=== PATIENT | female | born 1950 | race Caucasian/White ===

== ENCOUNTER 2018-08-06 18:34 | Inpatient (IN) ==
[2018-08-06] MEDS ORDERED: Acetaminophen 325 MG Tablet PO ONE (19:24)
[2018-08-06] MEDS ORDERED: Sod Chloride 0.9% Inj 1,000 ML IV.SIG ONE ×2 (19:24→20:35)
--- NOTE | 2018-08-06 19:32 | ED ---
HPI General Chief complaint: Abdominal Pain Stated complaint: abd pain/nausea x3days Time Seen by Provider: 08/06/18 19:17 Source: patient, family, RN notes reviewed and old records reviewed Mode of arrival: ambulatory History of Present Illness HPI narrative: 67yF presenting with fever. The patient states that for the past 3 days she's had tactile fevers/ chills, cough, and wheezing. She has been using her home nebulizer with minimal relief of symptoms. She reports that today she began to have nausea and multiple episodes of vomiting as well. Denies chest pain, abdominal pain (contrary to triage note, specifically denies abdominal pain), diarrhea, or dysuria. No known recent sick contacts. History of sepsis secondary to epidural abscess (grew MSSA), had been on doxycycline prophylaxis until recently, when she was taken off "to give her body a rest". Related Data Home Medications Medication Instructions Recorded Confirmed aspirin 81 mg PO DAILY 08/06/18 08/06/18 bupropion HCl 150 mg PO BID 08/06/18 08/06/18 escitalopram oxalate 20 mg PO DAILY 08/06/18 08/06/18 hydrocodone-acetaminophen 1 tab PO QID PRN 08/06/18 08/06/18 lisinopril 5 mg PO DAILY 08/06/18 08/06/18 metformin 1,000 mg PO BID 08/06/18 08/06/18 metoprolol tartrate 25 mg PO BID 08/06/18 08/06/18 omeprazole 20 mg PO DAILY 08/06/18 08/06/18 rosuvastatin 20 mg PO HS 08/06/18 08/06/18 Allergies Allergy/AdvReac Type Severity Reaction Status Date / Time penicillin G Allergy Severe Rash Verified 08/06/18 19:05 tetanus toxoid, adsorbed Allergy Severe Rash Verified 08/06/18 19:05 gabapentin AdvReac Severe Anaphylaxis Verified 08/06/18 20:54 Review of Systems ROS: all other systems reviewed are negative Constitutional Reports chills and Reports fever(s) Eyes Denies blurry vision ENT Denies nasal congestion Cardiovascular Denies chest pain Gastrointestinal Denies abdominal pain, Reports nausea and Reports vomiting Genitourinary Denies dysuria Musculoskeletal Denies back pain Neurologic Denies confusion Psychiatric Denies confusion PMFSH History History Provided By: Patient Medical History Medical History Depressed bipolar disorder (Acute) Diabetes (Acute) FHx: total knee replacement (Acute) GERD (gastroesophageal reflux disease) (Acute) HTN (hypertension) (Acute) Hx of myocardial infarction (Acute) Hx of sepsis (Acute) Hypercholesteremia (Acute) Migraines (Acute) Surgical History Surgical History Hx of section (Acute) Hx of tonsillectomy (Acute) Social History Social History Substance History: No History of Abuse Second Hand Smoke Exposure: No Smoking Status: Former smoker How Often Do You Have a Drink Containing Alcohol: Never [facility] within the Last 8 Weeks: No Recent Out of Country Travel within the Last 8 Weeks: No Exam Const General: no acute distress HENMT Face and sinus: normal facial exam Eyes General: appearance normal, both eyes and all related structures Resp Effort & Inspection: normal respiratory effort Auscultation: no rhonchi and no wheezes Cardio Rate: tachycardic Rhythm: regular rhythm GI Other: Obese, soft, non-tender in all quadrants, no guarding or rebound Skin General: no rashes or lesions noted Neuro General: alert and awake Psych Affect: normal affect Course Reevaluation(s) Reevaluation #1: The patient has no obvious source of infection on her initial workup so I added a CT abd/ pelvis to her orders. The patient initially refused the scan, and I have spoken with her at length at least 3 times and explained that I am concerned that we could be missing an intra-abdominal source of her infection. The patient reports that she has a headache and is requesting multiple doses of medications for this. I also added a head CT, but was told by the management tech that the patient refused abdominal CT once she was in the scanner. I again spoke with the patient and explained that I cannot treat her infection appropriately if I can't complete a workup. She says "if my head feels better and I'm not nauseous then I'll go for the scan". Time: 21:59 Initial Documented Vital Signs Temperature 102.7 F H 08/06/18 19:05 Pulse Rate 118 H 08/06/18 19:05 Respiratory Rate 18 08/06/18 19:05 Blood Pressure 164/78 H 08/06/18 19:05 Pulse Oximetry 93 L 08/06/18 19:05 Last Documented Vital Signs Temperature 99.5 F 08/06/18 21:09 Pulse Rate 75 08/07/18 00:37 Respiratory Rate 15 08/07/18 00:37 Blood Pressure 124/65 08/07/18 00:37 Pulse Oximetry 98 08/07/18 00:37 Medical Decision Making MDM Narrative Medical decision making narrative: Assessment: 67yF presenting with fever, tachycardia, cough, vomiting Plan: Sepsis workup CXR, CT abd/pelvis Will add CTH as patient complains of headache/ sinus congestion IV fluids Antibiotics Addendum: Please see "re-evaluation" section regarding patient refusing CT abd/ pelvis; this is still pending. The patient was found to have sepsis and acute kidney injury. I do not have a clear source yet as her UA, CXR, and flu swab were all negative. She was found to have sinusitis on CTH. I covered her with broad-spectrum antibiotics (patient has a PCN allergy so I added azactam/ flagyl / vanco). Case discussed with Dr. Arias of [facility], patient requires admission and further workup. Medical Screen Exam Complete: Yes Emergency Medical Condition: Yes Differential Diagnosis Differential Diagnosis: Differential diagnosis includes, but is not limited to: SIRS/ sepsis, influenza, pneumonia, viral syndrome, UTI Medical Records Medical records reviewed: Yes I reviewed the patient's medical records. Lab Data Lab results reviewed: Yes I reviewed the patient's lab results. Result diagrams: 08/06/18 19:54 08/06/18 19:54 Lab Results 08/06/18 08/06/18 08/06/18 Range/Units 19:54 19:54 19:54 CBC w Diff Slide review pending WBC 17.6 H (4.0-11.0) th/mm3 RBC 4.76 (4.00-5.30) mil/mm3 Hgb 13.2 (11.6-15.3) gm/dL Hct 40.3 (35.0-46.0) % MCV 84.6 (80.0-100.0) fL MCH 27.7 (27.0-34.0) pg MCHC 32.7 (32.0-36.0) % RDW 14.1 (11.6-17.2) % Plt Count 279 (150-450) th/mm3 MPV 9.4 (7.0-11.0) fL Neut % (Auto) 82.9 H (16.0-70.0) % Lymph % (Auto) 6.9 L (9.0-44.0) % [place] % (Auto) 5.2 (0.0-8.0) % Eos % (Auto) 2.7 (0.0-4.0) % Baso % (Auto) 2.3 H (0.0-2.0) % Neut # (Auto) 14.6 H (1.8-7.7) th/mm3 Lymph # (Auto) 1.2 (1.0-4.8) th/mm3 Bacon # (Auto) 0.9 (0.0-0.9) th/mm3 Eos # (Auto) 0.5 H (0.0-0.4) th/mm3 Baso # (Auto) 0.4 H (0.0-0.2) th/mm3 WBC Differential Manual diff final Seg Neuts % (Manual) 71 H (16-70) % Band Neuts % (Manual) 5 (0-6) % Lymphocytes % (Manual) 11 (9-44) % Monocytes % (Manual) 7 (0-8) % Eosinophils % (Manual) 5 H (0-4) % Basophils % (Manual) 1 (0-2) % Abs Neuts (Manual) 13.4 H (1.8-7.7) th/mm3 Differential Comment . Platelet Estimate Normal (Normal) Platelet Morphology Normal (Normal) Sodium 136 (136-145) meq/L Potassium 3.8 (3.5-5.1) meq/L Chloride 101 (98-107) meq/L Carbon Dioxide 26.8 (21.0-32.0) meq/L Anion Gap 8 (5-15) meq/L BUN 21 H (7-18) mg/dL Creatinine 1.40 H (0.50-1.00) mg/dL Estimated GFR 38 L (>89) mL/min Random Glucose 122 H (74-106) mg/dL Lactic Acid 1.4 (0.4-2.0) mmol/L Calcium 9.3 (8.5-10.1) mg/dL Phosphorus 1.5 L (2.5-4.9) mg/dL Magnesium 1.7 (1.5-2.5) mg/dL Total Bilirubin 0.4 (0.2-1.0) mg/dL AST 31 (15-37) U/L ALT 37 (10-53) U/L Alkaline Phosphatase 98 (45-117) U/L Total Protein 8.8 H (6.4-8.2) g/dL Albumin 4.0 (3.4-5.0) g/dL Lipase 93 (73-393) U/L Urine Color (Yellw/Straw) Urine Clarity (Clear) Urine pH (5.0-8.5) Ur Specific [place] (1.002-1.035) Urine Protein (Neg-Trace) mg/dL Urine Glucose (UA) (Negative) mg/dL Urine Ketones (Negative) mg/dL Urine Occult Blood (Negative) Urine Nitrate (Negative) Urine Bilirubin (Negative) Urine Urobilinogen (Less than 2) mg/dL Ur Leukocyte Esterase (Negative) Urine RBC (0-3) /hpf Urine WBC (0-5) /hpf Ur Squamous Epith Cells (0-5) /hpf Urine Bacteria (None) /hpf Micro UA Comment Ur Microscopic Review Urine Culture Comments 08/06/18 Range/Units 20:17 CBC w Diff WBC (4.0-11.0) th/mm3 RBC (4.00-5.30) mil/mm3 Hgb (11.6-15.3) gm/dL Hct (35.0-46.0) % MCV (80.0-100.0) fL MCH (27.0-34.0) pg MCHC (32.0-36.0) % RDW (11.6-17.2) % Plt Count (150-450) th/mm3 MPV (7.0-11.0) fL Neut % (Auto) (16.0-70.0) % Lymph % (Auto) (9.0-44.0) % Bacon % (Auto) (0.0-8.0) % Eos % (Auto) (0.0-4.0) % Baso % (Auto) (0.0-2.0) % Neut # (Auto) (1.8-7.7) th/mm3 Lymph # (Auto) (1.0-4.8) th/mm3 [place] # (Auto) (0.0-0.9) th/mm3 Eos # (Auto) (0.0-0.4) th/mm3 Baso # (Auto) (0.0-0.2) th/mm3 WBC Differential Seg Neuts % (Manual) (16-70) % Band Neuts % (Manual) (0-6) % Lymphocytes % (Manual) (9-44) % Monocytes % (Manual) (0-8) % Eosinophils % (Manual) (0-4) % Basophils % (Manual) (0-2) % Abs Neuts (Manual) (1.8-7.7) th/mm3 Differential Comment Platelet Estimate (Normal) Platelet Morphology (Normal) Sodium (136-145) meq/L Potassium (3.5-5.1) meq/L Chloride (98-107) meq/L Carbon Dioxide (21.0-32.0) meq/L Anion Gap (5-15) meq/L BUN (7-18) mg/dL Creatinine (0.50-1.00) mg/dL Estimated GFR (>89) mL/min Random Glucose (74-106) mg/dL Lactic Acid (0.4-2.0) mmol/L Calcium (8.5-10.1) mg/dL Phosphorus (2.5-4.9) mg/dL Magnesium (1.5-2.5) mg/dL Total Bilirubin (0.2-1.0) mg/dL AST (15-37) U/L ALT (10-53) U/L Alkaline Phosphatase (45-117) U/L Total Protein (6.4-8.2) g/dL Albumin (3.4-5.0) g/dL Lipase (73-393) U/L Urine Color Yellow (Yellw/Straw) Urine Clarity Clear (Clear) Urine pH 8.0 (5.0-8.5) Ur Specific [place] 1.020 (1.002-1.035) Urine Protein Negative (Neg-Trace) mg/dL Urine Glucose (UA) Negative (Negative) mg/dL Urine Ketones Negative (Negative) mg/dL Urine Occult Blood Negative (Negative) Urine Nitrate Negative (Negative) Urine Bilirubin Negative (Negative) Urine Urobilinogen 0.2 (Less than 2) mg/dL Ur Leukocyte Esterase Negative (Negative) Urine RBC 0-3 (0-3) /hpf Urine WBC 0-5 (0-5) /hpf Ur Squamous Epith Cells 0-5 (0-5) /hpf Urine Bacteria Few H (None) /hpf Micro UA Comment Culture not ind Ur Microscopic Review Microscopic reviewed Urine Culture Comments Culture not ind Imaging Data Radiologist's impression: Chest X-Ray 08/06/18 19:24 CONCLUSION: 1. No acute cardiopulmonary disease. Head CT 08/06/18 21:32 CONCLUSION: 1. Chronic ethmoid and maxillary sinus disease with suspected acute left maxillary sinusitis. 2. No acute intracranial abnormality. . ECG Data Attestation: I personally reviewed and interpreted this ECG as follows: Interpretation: Rate: 109 BPM Rhythm: Sinus [place]: Normal Intervals: 1st degree AV block, QTc 408 ms Q waves: III, aVF T waves: Inverted in III ST segments: No elevations or depressions Impression: Sinus tachycardia with inferior Q waves, no changes as compared to EKG from 08/08/2014. Discharge Plan Discharge Order Discharge Orders: ED Use Only Admit Order (Routine); Ordered 08/07/18 Ordered By: Kim Dominguez Physicians Team ED Provider: Kim Dominguez Primary Care Provider: Saritha Ramos Rxs /Orders / Referrals /Forms Prescriptions: No Action bupropion HCl 150 mg Tablet Sustained-Release 12 Hr 150 mg PO BID RF: 0 hydrocodone-acetaminophen 10-325 mg Tablet 1 tab PO QID PRN (Reason: Acute Pain) RF: 0 aspirin 81 mg Tablet,Delayed Release (Dr/Ec) 81 mg PO DAILY RF: 0 metformin 1,000 mg Tablet 1,000 mg PO BID RF: 0 omeprazole 20 mg Capsule,Delayed Release(Dr/Ec) 20 mg PO DAILY RF: 0 lisinopril 5 mg Tablet 5 mg PO DAILY RF: 0 escitalopram oxalate 20 mg Tablet 20 mg PO DAILY RF: 0 rosuvastatin 20 mg Tablet 20 mg PO HS RF: 0 metoprolol tartrate 25 mg Tablet 25 mg PO BID RF: 0 Discharge Interventions Interventions: Vital Signs Last Done: 08/07/18 00:37 Status ED Status: Admitted Patient
[2018-08-06 20:15] LABS: Baso # (Auto) 0.4 th/mm3 (0.0-0.2); Baso % (Auto) 2.3 % (0.0-2.0); Eos # (Auto) 0.5 th/mm3 (0.0-0.4); Eos % (Auto) 2.7 % (0.0-4.0); Hematocrit 40.3 % (35.0-46.0); Hemoglobin 13.2 gm/dL (11.6-15.3); Lymph # (Auto) 1.2 th/mm3 (1.0-4.8); Lymph % (Auto) 6.9 % (9.0-44.0); Mean Corpuscular HGB Conc 32.7 % (32.0-36.0); Mean Corpuscular Hemoglobin 27.7 pg (27.0-34.0); Mean Corpuscular Volume 84.6 fL (80.0-100.0); Mean Platelet Volume 9.4 fL (7.0-11.0); Mono # (Auto) 0.9 th/mm3 (0.0-0.9); Mono % (Auto) 5.2 % (0.0-8.0); Neut # (Auto) 14.6 th/mm3 (1.8-7.7); Neut % (Auto) 82.9 % (16.0-70.0); Platelet Count 279 th/mm3 (150-450); Red Blood Count 4.76 mil/mm3 (4.00-5.30); Red Cell Distribution Width 14.1 % (11.6-17.2); White Blood Count 17.6 th/mm3 (4.0-11.0)
[2018-08-06] MEDS ORDERED: Butalbital/APAP/Caff 50/325/40 MG Tablet PO ONE (20:15)
[2018-08-06 20:21] LABS: Chloride 101 meq/L (98-107); Potassium 3.8 meq/L (3.5-5.1); Sodium 136 meq/L (136-145)
[2018-08-06 20:21] LABS: Bilirubin,Urine Negative (Negative); Clarity,Urine Clear (Clear); Color,Urine Yellow (Yellw/Straw); Glucose,Urine (UA) Negative (Negative); Leukocyte Esterase,Urine Negative (Negative); Nitrite,Urine Negative (Negative); Urobilinogen,Urine 0.2 mg/dL (Less than 2)
[2018-08-06 20:24] LABS: Anion Gap 8 meq/L (5-15); Blood Urea Nitrogen 21 mg/dL (7-18); Calcium 9.3 mg/dL (8.5-10.1); Carbon Dioxide 26.8 meq/L (21.0-32.0); Glucose,Random 122 mg/dL (74-106); Lipase 93 U/L (73-393); Magnesium 1.7 mg/dL (1.5-2.5)
[2018-08-06 20:27] LABS: Alanine Aminotransferase 37 U/L (10-53); Aspartate Aminotransferase 31 U/L (15-37); Glomerular Filtration Rate 38 mL/min (>89); Phosphorus 1.5 mg/dL (2.5-4.9)
[2018-08-06 20:29] LABS: Total Protein 8.8 g/dL (6.4-8.2)
[2018-08-06] MEDS ORDERED: Potassium Phosphate Inj 30 MMOL in Sodium Chlor 0.9% Inj 250 ML IV.SIG ONE (20:29)
[2018-08-06 20:30] LABS: Alkaline Phosphatase 98 U/L (45-117)
--- NOTE | 2018-08-06 20:35 | XR ---
EXAM DATE: 08/06/2018 8:32 PM EST AGE/SEX: 67 years / Female INDICATIONS: Fever, shortness of breath. CLINICAL DATA: This is the patient's initial encounter. Patient reports that signs and symptoms have been present for 1 day and indicates a pain score of 10/10. MEDICAL/SURGICAL HISTORY: None. Fusion, thoracic. COMPARISON: [facility] [place], CHEST SINGLE AP, 07/04/2014. . FINDINGS: No significant new focal pleural or parenchymal opacities. Cardiomediastinal contours are within norm al limits given portable technique. Redemonstration of thoracic spine. Fixation hardware. CONCLUSION: 1. No acute cardiopulmonary disease. Electronically signed by: Ryan Saldivar MD Board Certified Radiologist 08/06/2018 8:34 PM EST
[2018-08-06 20:36] LABS: Bacteria,Urine Few /hpf; RBC,Urine 0-3 /hpf (0-3); Squamous Epithelial Cell,Urine 0-5 /hpf (0-5); WBC,Urine 0-5 /hpf (0-5)
[2018-08-06 21:07] LABS: Eosinophils 5 % (0-4); Lymphocytes 11 % (9-44); Monocytes 7 % (0-8)
[2018-08-06 21:08] LABS: Platelet Estimate Normal (Normal); Platelet Morphology Normal (Normal)
[2018-08-06] MEDS ORDERED: Morphine Inj 4 MG/ML Vial IV.PUSH ONE (21:32)
--- NOTE | 2018-08-06 21:55 | CT ---
EXAM DATE: 08/06/2018 9:47 PM EST AGE/SEX: 67 years / Female INDICATIONS: Fever, headache. CLINICAL DATA: This is the patient's initial encounter. Patient reports that signs and symptoms have been present for 1 day and indicates a pain score of 5/10. MEDICAL/SURGICAL HISTORY: Cardiovascular disease. Hypertension. Diabetes. None. RADIATION DOSE: 58.65 CTDI (mGy) COMPARISON: No prior exams available for comparison. TECHNIQUE: CT of the head without contrast. Using automated exposure control and adjustment of the mA and/or kV according to patient size, radiation dose was kept as low as reasonably achievable to ob tain optimal diagnostic quality images. DICOM format image data is available electronically for revi ew and comparison. FINDINGS: Cerebrum: The ventricles are normal for age. No evidence of midline shift, mass lesion, hemorrhage or acute infarction. No extraaxial fluid collections are seen. Posterior Fossa: The cerebellum and brainstem are intact. The 4th ventricle is midline. The cerebe llopontine angle is unremarkable. Extracranial: The visualized portion of the orbits is intact. Mucosal thickening is seen involving t he ethmoid air cells bilaterally and maxillary sinuses bilaterally. Small air-fluid level involving t he left maxillary sinus. Mastoid air cells are clear. Skull: The calvaria is intact. No evidence of skull fracture. CONCLUSION: 1. Chronic ethmoid and maxillary sinus disease with suspected acute left maxillary sinusitis. 2. No acute intracranial abnormality. . Electronically signed by: Adryan Hairston MD Board Certified Radiologist 08/06/2018 9:53 PM EST
[2018-08-06] MEDS ORDERED: Vancomycin Inj 1,000 MG in Sodium Chlor 0.9% Inj 250 ML IV.SIG ONE (22:27)
[2018-08-06] MEDS ORDERED: Aztreonam Inj 2 GM in Sodium Chloride 0.9% Inj 100 ML IV.SIG ONE (22:29)
[2018-08-07] MEDS ORDERED: Vancomycin Consult Pharmacy OTHER PRN ×2 (00:44→01:11)
[2018-08-07] MEDS ORDERED: Bisacodyl 10 MG Supp RECTAL PRN (00:45)
[2018-08-07] MEDS ORDERED: Aztreonam Inj 2 GM in Sodium Chloride 0.9% Inj 100 ML IV.SIG SCH (01:00)
[2018-08-07] MEDS ORDERED: Vancomycin Inj 650 MG in Sodium Chlor 0.9% Inj 250 ML IV.SIG SCH (02:00)
[2018-08-07] MEDS: Acetaminophen 325 MG Tablet PO PRN (03:20)
[2018-08-07] MEDS: Heparin - SQ 10,000 UNITS/ML Vial SQ SCH ×3 (03:20→23:48)
[2018-08-07] MEDS: Sod Chloride 0.9% Inj 1,000 ML IV.CONT SCH ×3 (05:18→20:57)
[2018-08-07] MEDS ORDERED: Influenza (Quadrivalent) Vaccine 0.5 ML Syringe IM ONE (09:00)
[2018-08-07] MEDS: buPROPion 150 MG 12 HR Tablet PO SCH ×2 (09:09→20:56)
[2018-08-07] MEDS: Metoprolol Tartrate 25 MG Tablet PO SCH ×2 (09:09→20:56)
[2018-08-07] MEDS: Aztreonam Inj 2 GM in Sodium Chloride 0.9% Inj 100 ML IV.SIG SCH ×3 (09:11→23:47)
[2018-08-07] MEDS: Senna/Docusate Sodium 8.6/50 MG Tablet PO SCH ×2 (09:13→20:56)
--- NOTE | 2018-08-07 09:50 | P.HPIM ---
History of Present Illness Primary Care Physician: Saritha Ramos History of Present Illness: This is a 67-year-old female patient with a known medical history of hypertension, hyperlipidemia and diabetes who presented to the ED with complaints of fever, chills, cough and wheezing for 3 days. She does admit to subjective fevers at home although she states she has not taken her temperature at home as well as nausea, denies any vomiting or diarrhea. Does admit to a cough with green productive phlegm, denies any recent antibiotic use. Denies any sick contacts. Patient denies any history of COPD although she states that she has been wheezing. She states she quit smoking after many years about 4 years ago. She does use a nebulizer at home, states she has been using this more due to her shortness of breath and coughing without resolution of her symptoms. Patient does follow with mat tester, Dr. Galarza. Who manages her CAD. She does have a history of TN and stent placement. It also should be noted that patient has a history of an epidural abscess with MSSA, in 2013 she underwent back surgery for this with placement of rods, at that time was placed on doxycycline and continued for prophylaxis of infection. Recently she has been taken off this doxycycline and she no longer takes this. Denies any abnormal back pain, no point tenderness on exam, she does have chronic back pain and takes [place] for this. Inpatient Certification Inpatient Certification: I certify that the inpatient services were ordered in accordance with Medicare regulations governing the order. This includes certification that hospital inpatient services are reasonable and necessary and in the case of services not specified as inpatient-only under 42 CFR 419.22(n), that they are appropriately provided as inpatient services in accordance to with the 2-midnight benchmark under 43 CFR 412.3(e) Estimated Total Length of Stay (Days): 3 Plans for Post Hospital Care: Not yet determined Review of Systems Review of Systems: all other systems reviewed are negative [facility] Medical History Medical History Depressed bipolar disorder (Acute) Diabetes (Acute) FHx: total knee replacement (Acute) GERD (gastroesophageal reflux disease) (Acute) HTN (hypertension) (Acute) Hx of myocardial infarction (Acute) Hx of sepsis (Acute) Hypercholesteremia (Acute) Migraines (Acute) Surgical History Surgical History Hx of section (Acute) Hx of tonsillectomy (Acute) Social History Social History Substance History: No History of Abuse Second Hand Smoke Exposure: No Smoking Status: Never smoker How Often Do You Have a Drink Containing Alcohol: Never Recent Travel in [place] within the Last 8 Weeks: No Recent Out of Country Travel within the Last 8 Weeks: No Immunization History Tetanus Immunization: Unable to Assess Hx Influenza Vaccine This Season: No Medications and Allergies Allergies Allergy/AdvReac Type Severity Reaction Status Date / Time penicillin G Allergy Severe Rash Verified 08/06/18 19:05 tetanus toxoid, adsorbed Allergy Severe Rash Verified 08/06/18 19:05 gabapentin AdvReac Severe Anaphylaxis Verified 08/06/18 20:54 Home Medications Medication Instructions Recorded Confirmed Type aspirin 81 mg PO DAILY 08/06/18 08/06/18 History bupropion HCl 150 mg PO BID 08/06/18 08/06/18 History escitalopram oxalate 20 mg PO DAILY 08/06/18 08/06/18 History hydrocodone-acetaminophen 1 tab PO QID PRN 08/06/18 08/06/18 History lisinopril 5 mg PO DAILY 08/06/18 08/06/18 History metformin 1,000 mg PO BID 08/06/18 08/06/18 History metoprolol tartrate 25 mg PO BID 08/06/18 08/06/18 History omeprazole 20 mg PO DAILY 08/06/18 08/06/18 History rosuvastatin 20 mg PO HS 08/06/18 08/06/18 History Active Medications: Active Medications Acetaminophen (Tylenol) 650 mg PO Q4H PRN PRN Reason: Temp > 100.4 Last Admin: 08/07/18 03:20 Dose: 650 mg Hydrocodone Bitart/Acetaminophen ([place] 10/325) 1 tab PO QID PRN PRN Reason: Acute Pain Last Admin: 08/07/18 09:08 Dose: 1 tab Al Hydroxide/Mg Hydroxide (Milk Of Magnesia Liq) 30 ml PO Q12H PRN PRN Reason: Mild Constipation Aspirin (Ecotrin) 81 mg PO DAILY [facility] Last Admin: 08/07/18 09:08 Dose: 81 mg Atorvastatin Calcium (Lipitor) 40 mg PO HS [facility] Bisacodyl (Dulcolax Supp) 10 mg RECTAL DAILY PRN PRN Reason: SEVERE CONSITIPATION Bupropion HCl (Wellbutrin Sr) 150 mg PO BID [facility] Last Admin: 08/07/18 09:09 Dose: 150 mg Escitalopram Oxalate (Lexapro) 20 mg PO DAILY [facility] Last Admin: 08/07/18 09:09 Dose: 20 mg Heparin Sodium (Porcine) (Heparin Inj) 5,000 units SQ Q12H [facility] Last Admin: 08/07/18 03:20 Dose: 5,000 units Sodium Chloride (Ns Inj) 1,000 mls @ 100 mls/hr IV.CONT .Q10H [facility] Last Admin: 08/07/18 05:18 Dose: 100 mls/hr Aztreonam 2 gm/ Sodium (Chloride) 100 mls @ 200 mls/hr IV.SIG Q8H [facility] Last Admin: 08/07/18 09:11 Dose: 200 mls/hr Metronidazole/Sodium Chloride (Flagyl 500 Mg Inj) 100 mls @ 100 mls/hr IV.SIG Q8H [facility] Last Infusion: 08/07/18 04:20 Dose: Infused Vancomycin HCl 1,650 mg/ (Sodium Chloride) 516.5 mls @ 250 mls/hr IV.SIG DAILY@ 0500 [facility] Lactulose (Lactulose Liq) 30 ml PO DAILY PRN PRN Reason: SEVERE CONSITIPATION Lisinopril (Prinivil) 5 mg PO DAILY [facility] Metoprolol Tartrate (Lopressor) 25 mg PO BID [facility] Last Admin: 08/07/18 09:09 Dose: 25 mg Miscellaneous Information ([facility] Ordered Lab Info) 0 each OTHER DAILY@ 0445 ONE Stop: 08/11/18 04:46 Ondansetron HCl (Zofran Inj) 4 mg IV.PUSH Q6H PRN PRN Reason: NAUSEA OR VOMITING Last Admin: 08/07/18 09:11 Dose: 4 mg Pantoprazole Sodium (Protonix) 20 mg PO DAILY [facility] Pharmacy Profile Note (Vancomycin Consult Pharmacy) 1 each OTHER UNSCH PRN PRN Reason: Pharmacy to dose Senna/Docusate Sodium (Clarita-Colace) 1 tab PO BID [facility] Last Admin: 08/07/18 09:13 Dose: 1 tab Sennosides (Senokot) 17.2 mg PO Q12H PRN PRN Reason: Moderate Constipation Sodium Chloride (Ns Flush) 2 ml IV.FLUSH BID [facility] Last Admin: 08/07/18 09:13 Dose: 2 ml Sodium Chloride (Ns Flush) 2 ml IV.FLUSH PRN PRN PRN Reason: FLUSH AFTER USING IV ACCESS Physical Exam Vital signs: Vital Signs 08/06/18 19:05 08/06/18 20:44 08/06/18 21:04 Temperature 102.7 F H Pulse Rate 118 H 95 H Respiratory Rate 18 15 Blood Pressure 164/78 H 140/76 Pulse Oximetry 93 L 93 L 08/06/18 21:09 08/07/18 00:37 08/07/18 01:50 Temperature 99.5 F Pulse Rate 75 73 Respiratory Rate 15 15 Blood Pressure 124/65 145/75 H Pulse Oximetry 98 97 08/07/18 04:00 08/07/18 08:00 Temperature 99.5 F 97.3 F L Pulse Rate 77 78 Respiratory Rate 20 20 Blood Pressure 107/52 L 126/87 Pulse Oximetry 95 95 Intake & Output 08/06/18 08/07/18 08/07/18 18:59 06:59 18:59 Intake Total 2966.5 / 2966.5 Balance 2966.5 / 2966.5 Weight 118.7 kg Intake: IV 2966.5 / 2966.5 Azactam Inj 2 GM In NS Inj 100 100 / 100 ML @ 200 mls/hr IV.SIG ONCE ONE Rx#:[id number] Potassium Phosphate Inj 30 MMOL 260 / 260 In NS Inj 250 ML @ 43.333 mls/ hr IV.SIG ONCE ONE Rx#: [id number] NS Inj 1,000 ML @ Wide Open IV. 1999 SIG BOLUS ONE Rx#:[id number] Vancomycin Inj 1,000 MG In NS 250 / 250 Inj 250 ML @ 250 mls/hr IV.SIG ONCE ONE Rx#:[id number] Vancomycin Inj 650 MG In NS Inj 256.5 / 256.5 250 ML @ 250 mls/hr IV.SIG DAILY@0200 [facility] Rx#:[id number] Flagyl 500 MG Inj 100 ML @ 100 100 / 100 mls/hr IV.SIG Q8H [facility] Rx#: [id number] Other: # Voids 3 Weight On Admission 118.5 kg Narrative: GENERAL: Well-developed, well-nourished patient in NAD. SKIN: Warm and dry. No rash. HEAD: Normocephalic. Atraumatic. EYES: Pupils equal and round. No scleral icterus. No injection or drainage. ENT: No nasal bleeding or discharge. Mucous membranes pink and moist. NECK: Supple. Trachea midline. CARDIOVASCULAR: Regular rate and rhythm. S1, S2 noted. No murmur appreciated. RESPIRATORY: No accessory muscle use. Clear to auscultation. Breath sounds equal bilaterally. GASTROINTESTINAL: Abdomen soft, non-tender, nondistended. Normoactive bowel sounds x4. MUSCULOSKELETAL: No obvious deformities. Extremities without clubbing, cyanosis , or edema. NEUROLOGICAL: Awake and alert. No obvious cranial nerve deficits. Motor grossly within normal limits. 5/5 muscle strength in bilateral upper and lower extremities. Normal speech. PSYCHIATRIC: Appropriate mood and affect; insight and judgment normal. Results Labs CBC & Chem 7: 08/06/18 19:54 08/06/18 19:54 Imaging Impressions Chest X-Ray 08/06/18 19:24 CONCLUSION: 1. No acute cardiopulmonary disease. Head CT 08/06/18 21:32 CONCLUSION: 1. Chronic ethmoid and maxillary sinus disease with suspected acute left maxillary sinusitis. 2. No acute intracranial abnormality. . Caprini VTE Risk Assessment Caprini VTE Risk Assessment: Moderate/High Risk (score >= 2) Caprini Risk Assessment Model: Point Value = 1 Point Value = 2 Point Value = 3 Point Value = 5 Age 41-60 Minor surgery BMI > 25 kg/m2 Swollen legs Varicose veins or History of unexplained or recurrent spontaneous Oral contraceptives or hormone replacement Sepsis (< 1 month) Serious lung disease, including pneumonia (< 1 month) Abnormal pulmonary function Acute myocardial infarction Congestive heart failure (< 1 month) History of inflammatory bowel disease Medical patient at bed rest Age 61-74 Arthroscopic surgery Major open surgery (> 45 min) Laparoscopic surgery (> 45 min) Malignancy Confined to bed (> 72 hours) Immobilizing plaster cast Central venous access Age >= 75 History of VTE Family history of VTE Factor V Leiden Prothrombin [id number] Lupus anticoagulant Anticardiolipin antibodies Elevated serum homocysteine Heparin-induced thrombocytopenia Other congenital or acquired thrombophilia Stroke (< 1 month) Elective arthroplasty Hip, pelvis, or leg fracture Acute spinal cord injury (< 1 month) Prophylaxis Regimen: Total Risk Factor Score Risk Level Prophylaxis Regimen 0-1 Low Early ambulation 2 Moderate Order ONE of the following: *Sequential Compression Device (SCD) *Heparin 5000 units SQ BID 3-4 Higher Order ONE of the following medications: *Heparin 5000 units SQ TID *Enoxaparin/Lovenox 40 mg SQ daily (WT < 150 kg, CrCl > 30 mL/min) *Enoxaparin/Lovenox 30 mg SQ daily (WT < 150 kg, CrCl > 10-29 mL/min) *Enoxaparin/Lovenox 30 mg SQ BID (WT < 150 kg, CrCl > 30 mL/min) AND/OR *Sequential Compression Device (SCD) 5 or more Highest Order ONE of the following medications: *Heparin 5000 units SQ TID (Preferred with Epidurals) *Enoxaparin/Lovenox 40 mg SQ daily (WT < 150 kg, CrCl > 30 mL/min) *Enoxaparin/Lovenox 30 mg SQ daily (WT < 150 kg, CrCl > 10-29 mL/min) *Enoxaparin/Lovenox 30 mg SQ BID (WT < 150 kg, CrCl > 30 mL/min) AND *Sequential Compression Device (SCD) Assessment and Plan Plan This is a 67-year-old female patient with a known medical history of hypertension, hyperlipidemia and diabetes who presented to the ED with complaints of abdominal pain, fever, chills, cough and wheezing for 3 days. Sepsis -Meets criteria with fever of 102.7, tachycardia, leukocytosis of white blood cell 17,000 and source is sinusitis -This is likely an upper respiratory infection, they are wheezing on exam as well as congestion and productive cough. -This could be a sinusitis, CT of the head was done showing some sinusitis in the left maxillary. -Patient has been started on vancomycin and Azactam as well as Flagyl. An abdominal CT is also been ordered and pending for today. There is concern that were missing something in the abdomen although patient denies any abdominal pain or bowel changes. -Blood cultures have been drawn and pending, continue to monitor growth. Lactic acid normal. UA negative. Chest x-ray actually negative for any acute cardiopulmonary disease. -Patient continued on IV fluids, ensure hydration. -Pain control with IV narcotics. -Supportive care. Continue to monitor. Hypertension, chronic -Will continue home medications. Blood pressure stable. Continue to monitor trends. Hyperlipidemia, chronic -Will continue home rosuvastatin. CAD with history of TN and cardiac stents -Will continue beta-miriam as well as aspirin. Continue on cardiac receiving associate for any arrhythmias. Chronic back pain -E force database has been carried and it does show that patient takes hydrocodone/acetaminophen 10/325 mg p.o. 4 times daily as needed. We will continue this while hospitalized. Morphine also available IV for breakthrough. DVT prophylaxis: SCDs. Heparin. Discussed with patient, , bedside RN and Dr. Alfaro. Patient presents with fever, chills, headache and has left facial tenderness. CT shows acute left maxillary sinusitis. Today she is feeling better though still with headache Vital signs stable Neck supple Tender left maxilla Sepsis secondary to acute sinusitis. Continue antibiotics and monitor for response. If no improvement with her headache may need LP H&P: Quality VTE Deep Vein Thrombosis/Pulmonary Embolism Present on Admission: No
[2018-08-07] MEDS: Lisinopril 5 MG Tablet PO SCH (10:10)
[2018-08-07] MEDS: Pantoprazole Sodium 20 MG DR Tablet PO SCH (10:10)
--- NOTE | 2018-08-07 12:15 | CT ---
EXAM DATE: 08/07/2018 11:49 AM EST AGE/SEX: 67 years / Female INDICATIONS: Fever. CLINICAL DATA: This is the patient's initial encounter. Patient reports that signs and symptoms have been present for 1 day and indicates a pain score of 0/10. MEDICAL/SURGICAL HISTORY: Gastroesophageal reflux disease. Myocardial infarction. Hypertensio n. Sepsis. Diabetes. Hypercholestermia. section. ORAL CONTRAST: No oral contrast ingested. RADIATION DOSE: 23.05 CTDI (mGy) ; Patient body habitus COMPARISON: No prior exams available for comparison. TECHNIQUE: Multiple contiguous axial images were obtained through the abdomen and pelvis following b olus infusion of 46 ml Visipaque 320 (iodixanol) nonionic water-soluble contrast as a single exam d ose. No oral contrast ingested. Using automated exposure control and adjustment of the mA and/or kV according to patient size, radiation dose was kept as low as reasonably achievable to obtain optimal diagnostic quality images. DICOM format image data is available electronically for review and compar lulu. FINDINGS: Lower Lungs: The visualized lower lungs are clear. Liver: Mild diffuse hypodensity of the liver and prominent size of the liver. No focal mass identifie d. Spleen: 1.8 cm rounded hypodensity in the posterior medial aspect of the spleen likely are presentin g a cyst or hemangioma. Size within normal limits. Pancreas: Unremarkable without mass or calcification. Kidneys: Normal in size and shape. No evidence of mass or hydronephrosis. Adrenal Glands: Unremarkable. Aorta: The aorta and proximal iliac vessels are grossly unremarkable without aneurysmal dilation. Bowel/Mesentery: No evidence of bowel dilatation. No free air or free fluid. Appendix not identified . Abdominal Wall: Small fat-containing hernia in the lower midline abdomen measuring 4 cm x 3 cm. Retroperitoneum: No enlarged lymph nodes. Bladder: Within normal limits. Reproductive Organs: Unremarkable. Inguinal: Unremarkable. Bony Structures: Postsurgical findings of the lower thoracic spine. Degenerative findings lumbar spi ne. Post Contrast: No abnormal areas of enhancement seen. CONCLUSION: 1. No acute findings in the abdomen and pelvis. 2. Mild hepatic steatosis. 3. 1.8 cm hypodensity in the spleen likely representing a cyst or hemangioma. 4. Small anterior abdominal wall fat-containing hernia. Electronically signed by: Derrick Arevalo MD Board Certified Radiologist 08/07/2018 12:13 PM EST
--- NOTE | 2018-08-08 01:19 | ECG ---
Date Performed: 08/06/2018 Time Performed: 19:30:07 PTAGE: 67 years EKG: SINUS TACHYCARDIA WITH FIRST DEGREE AV BLOCK WITH OCCASIONAL SUPRAVENTRICULAR PREMATURE COM PLEXES LOW QRS VOLTAGE IN PRECORDIAL LEADS POSSIBLE ANTERIOR MYOCARDIAL INFARCTION INFERIOR MYOCARDIA L INFARCTION ABNORMAL ECG PREVIOUS TRACING : 08/09/2014 02.11 Compared to previous tracing, rate has increased DOCTOR: Eliud Rashid Interpretating Date/Time 08/08/2018 01:18:43
[2018-08-08] MEDS ORDERED: Butalbital/APAP/Caff 50/325/40 MG Tablet PO ONE (02:15)
[2018-08-08 02:38] LABS: ABG Base Excess -2.2 mmol/L (-2-2); ABG PCO2 45 mmHg (38-42); ABG PO2 63 mmHg (61-120)
--- NOTE | 2018-08-08 03:08 | XR ---
EXAM DATE: 08/08/2018 2:48 AM EST AGE/SEX: 67 years / Female INDICATIONS: Respiratory failure. Decreasing O2 levels. CLINICAL DATA: This is the patient's subsequent encounter. Patient reports that signs and symptoms h ave been present for 2 days and indicates a pain score of 7/10. MEDICAL/SURGICAL HISTORY: . Gastroesophageal reflux disease. Myocardial infarction. Hypertensio n. Sepsis. Diabetes. Hypercholestermia. . Thoracic fusion. section. COMPARISON: [facility], CHEST 1V SINGLE AP, 08/06/2018. . FINDINGS: Mild diffuse interstitial prominence. No significant new focal pleural or parenchymal opacities. Card iac lead is enlarged with indistinct central pulmonary vascularity. Redemonstration of fixation hardw are in the thoracic spine. CONCLUSION: 1. Cardiomegaly with mild positive fluid balance. Electronically signed by: Ryan Saldivar MD Board Certified Radiologist 08/08/2018 3:07 AM EST
[2018-08-08 04:39] LABS: Baso % (Auto) 0.2 % (0.0-2.0); Eos # (Auto) 0.7 th/mm3 (0.0-0.4); Eos % (Auto) 3.1 % (0.0-4.0); Hemoglobin 13.3 gm/dL (11.6-15.3); Lymph # (Auto) 1.8 th/mm3 (1.0-4.8); Lymph % (Auto) 8.4 % (9.0-44.0); Mean Corpuscular HGB Conc 32.3 % (32.0-36.0); Mean Corpuscular Hemoglobin 28.1 pg (27.0-34.0); Mean Platelet Volume 10.1 fL (7.0-11.0); Mono # (Auto) 0.9 th/mm3 (0.0-0.9); Mono % (Auto) 4.2 % (0.0-8.0); Neut # (Auto) 18.4 th/mm3 (1.8-7.7); Neut % (Auto) 84.1 % (16.0-70.0); Platelet Count 286 th/mm3 (150-450); Red Blood Count 4.72 mil/mm3 (4.00-5.30); Red Cell Distribution Width 14.6 % (11.6-17.2); White Blood Count 21.8 th/mm3 (4.0-11.0)
[2018-08-08 04:44] LABS: Chloride 103 meq/L (98-107); Sodium 137 meq/L (136-145)
[2018-08-08 05:25] LABS: Alanine Aminotransferase 39 U/L (10-53); Albumin 3.6 g/dL (3.4-5.0); Alkaline Phosphatase 93 U/L (45-117); Anion Gap 8 meq/L (5-15); Aspartate Aminotransferase 32 U/L (15-37); Blood Urea Nitrogen 17 mg/dL (7-18); Calcium 8.2 mg/dL (8.5-10.1); Carbon Dioxide 25.8 meq/L (21.0-32.0); Glomerular Filtration Rate 41 mL/min (>89); Glucose,Random 173 mg/dL (74-106); Total Protein 8.2 g/dL (6.4-8.2)
[2018-08-08] MEDS: VANCOMYCIN IV.SIG SCH (06:23)
[2018-08-08] MEDS: SODIUM CHLOR 0.9% IV.SIG SCH (06:23)
[2018-08-08] MEDS: buPROPion 150 MG 12 HR Tablet PO SCH ×2 (08:13→20:06)
[2018-08-08] MEDS: Senna/Docusate Sodium 8.6/50 MG Tablet PO SCH (08:13)
[2018-08-08] MEDS: Lisinopril 5 MG Tablet PO SCH (08:13)
[2018-08-08] MEDS: Metoprolol Tartrate 25 MG Tablet PO SCH ×2 (08:13→20:07)
[2018-08-08] MEDS: Aztreonam Inj 2 GM in Sodium Chloride 0.9% Inj 100 ML IV.SIG SCH ×2 (08:13→16:53)
[2018-08-08] MEDS: Pantoprazole Sodium 20 MG DR Tablet PO SCH (08:13)
[2018-08-08] MEDS: Acetaminophen 325 MG Tablet PO PRN (09:00)
[2018-08-08] MEDS ORDERED: MethylPREDNISolone Sod Succinate Inj 125 MG/2 ML Vial IV.PUSH ONE (11:01)
--- NOTE | 2018-08-08 11:04 | P.PNIM ---
Subjective Interval history: Follow up sepsis. Patient seen and examined, lying in bed on BIPAP, with RR in the 30's, seems to be anxious and diffuse wheezing. Patient was given solumedrol 125 mg IV x 1, Lasix 20 mg IV x 1 and Ativan 1 mg x 1. More restful now. Denies any pain. Spoke to and daughter at length regarding treatment plan. Patient is a full code at this time. VSS. Afebrile. Will continue to monitor. Leukocytosis worsening. Physical Exam Vital signs: Vital Signs 08/07/18 12:00 08/07/18 16:00 08/07/18 20:00 Temperature 97.9 F 97 F L 96.8 F L Pulse Rate 61 65 58 L Respiratory Rate 20 20 18 Blood Pressure 111/67 104/67 134/64 Pulse Oximetry 98 97 95 08/08/18 00:00 08/08/18 02:25 08/08/18 03:00 Temperature 96.1 F L Pulse Rate 53 L Respiratory Rate 18 Blood Pressure 130/68 Pulse Oximetry 96 91 L 95 08/08/18 03:01 08/08/18 03:05 08/08/18 03:11 Temperature Pulse Rate 106 H 128 H 96 H Respiratory Rate 41 H 40 H 37 H Blood Pressure 125/78 125/78 174/97 H Pulse Oximetry 98 89 L 94 L 08/08/18 03:30 08/08/18 03:45 08/08/18 04:00 Temperature Pulse Rate 88 82 78 Respiratory Rate 37 H 39 H 38 H Blood Pressure 151/93 H 157/83 H 146/89 H Pulse Oximetry 91 L 91 L 95 08/08/18 04:15 08/08/18 04:30 08/08/18 04:34 Temperature Pulse Rate 74 74 Respiratory Rate 36 H 35 H 36 H Blood Pressure 152/84 H 132/83 Pulse Oximetry 97 97 08/08/18 04:45 08/08/18 06:02 08/08/18 07:30 Temperature Pulse Rate 60 Respiratory Rate 22 22 Blood Pressure Pulse Oximetry 96 100 08/08/18 07:38 08/08/18 08:00 08/08/18 09:00 Temperature 98.2 F Pulse Rate 70 70 Respiratory Rate 23 25 H Blood Pressure 119/71 133/83 138/71 Pulse Oximetry 98 96 97 08/08/18 09:20 Temperature Pulse Rate Respiratory Rate Blood Pressure Pulse Oximetry 98 Intake & Output 08/07/18 08/08/18 08/08/18 18:59 06:59 18:59 Intake Total 340 / 340 1200 / 1200 Output Total 1200 / 1200 Balance 340 / 340 0 / 0 Weight 115.1 kg Intake: IV 100 / 100 1200 / 1200 NS Inj 1,000 ML @ 100 mls/hr IV 1000 / 1000 .CONT .Q10H [facility] Rx#:[id number] Azactam Inj 2 GM In NS Inj 100 100 / 100 200 / 200 ML @ 200 mls/hr IV.SIG Q8H [facility] Rx#:[id number] Oral 240 / 240 Output: Urine 1200 / 1200 Other: # Voids 15 Date of Last Bowel Movement 08/07/18 08/07/18 Narrative: GENERAL: Well-developed, well-nourished patient with anxiety, on BIPAP. Denies any pain. SKIN: Warm and dry. No rash. HEAD: Normocephalic. Atraumatic. EYES: Pupils equal and round. No scleral icterus. No injection or drainage. ENT: No nasal bleeding or discharge. Mucous membranes pink and moist. NECK: Supple. Trachea midline. CARDIOVASCULAR: Regular rate and rhythm. S1, S2 noted. RESPIRATORY: No accessory muscle use. Clear to auscultation. Breath sounds equal bilaterally. GASTROINTESTINAL: Abdomen soft, non-tender, nondistended. Round and obese. Normoactive bowel sounds x4. MUSCULOSKELETAL: No obvious deformities. Extremities without clubbing, cyanosis , or edema. NEUROLOGICAL: Awake and alert. No obvious cranial nerve deficits. Motor grossly within normal limits. 5/5 muscle strength in bilateral upper and lower extremities. Normal speech. PSYCHIATRIC: Appropriate mood and affect; insight and judgment normal. Results Labs CBC & Chem 7: 08/08/18 04:21 08/08/18 04:21 Labs: Microbiology 08/06/18 20:00 Blood - Peripheral Aerobic Blood Culture - Preliminary No growth in 2 days 08/06/18 20:00 Blood - Peripheral Anaerobic Blood Culture - Preliminary No growth in 2 days 08/06/18 19:50 Blood - Peripheral Aerobic Blood Culture - Preliminary No growth in 2 days 08/06/18 19:50 Blood - Peripheral Anaerobic Blood Culture - Preliminary No growth in 2 days Imaging Imaging: Impressions Abdomen/Pelvis CT 08/07/18 00:00 CONCLUSION: 1. No acute findings in the abdomen and pelvis. 2. Mild hepatic steatosis. 3. 1.8 cm hypodensity in the spleen likely representing a cyst or hemangioma. 4. Small anterior abdominal wall fat-containing hernia. Chest X-Ray 08/08/18 00:00 CONCLUSION: 1. Cardiomegaly with mild positive fluid balance. Assessment and Plan Plan This is a 67-year-old female patient with a known medical history of hypertension, hyperlipidemia and diabetes who presented to the ED with complaints of abdominal pain, fever, chills, cough and wheezing for 3 days. Sepsis Acute on chronic sinusitis -Meets criteria with fever of 102.7, tachycardia, leukocytosis of white blood cell 17,000 and source acute sinusitis. Leukocytosis worsening. -CT of the head was done showing some sinusitis in the left maxillary. -Patient has been started on vancomycin and Azactam. Will continue. -Abdominal CT negative. -Blood cultures have been drawn with no growth, continue to monitor. -Lactic acid normal. UA negative. Chest x-ray initially negative for any acute cardiopulmonary disease. -DC IVF, possibly overloaded. Was given Lasix. CXR this am showing + fluid balance. Monitor intake and output. Check an ECHO. -Pain control with IV narcotics. -Supportive care. Continue to monitor. Acute respiratory failure Suspect secondary to COPD exacerbation vs anxiety vs fluid overload -This morning patient required transfer to ICU for closer monitoring and BIPAP administration. -Wheezing was noted throughout. Given 125 mg IV Solumedrol; as well as Lasix a total of 40 mg IV and Ativan 1 mg IV. -Meat Process Worker consulted, input and recommendations pending. -Consider chest CT if no improvement. -Added Solumedrol scheduled as well as Duonebs scheduled and as needed. -Continue close monitoring in ICU. -Full code. Hypertension, chronic -Will continue home medications. Blood pressure stable. Continue to monitor trends. Hyperlipidemia, chronic -Will continue home rosuvastatin. CAD with history of [place] and cardiac stents -Will continue beta-mriiam as well as aspirin. Continue on cardiac site monitor for any arrhythmias. Chronic back pain -E force database has been carried and it does show that patient takes hydrocodone/acetaminophen 10/325 mg p.o. 4 times daily as needed. Will continue this while hospitalized. Morphine also available IV for breakthrough. DVT prophylaxis: SCDs. Heparin. Discussed with patient, , patient's daughter, bedside RN and Dr. Alfaro. The exam, history, and the medical decision-making described in the above note were completed with the assistance of the mid-level provider. I reviewed and agree with the findings presented. I attest that I had a [id number] encounter with the patient on the same day, and personally performed and documented my assessment and findings in the medical record. Developed respiratory decompensation overnight required BiPAP Vital signs stable Currently on BiPAP Decreased equal breath sounds Regular rate and rhythm Acute respiratory failure secondary to COPD exacerbation versus fluid overload. Wean BiPAP, continue nebulization, IV antibiotics and steroids. Status post Lasix obtain 2D echo Anxiety. Benzos as needed Progress Note: Quality VTE Deep Vein Thrombosis/Pulmonary Embolism Present on Admission: No
[2018-08-08] MEDS ORDERED: MethylPREDNISolone Sod Succinate Inj 125 MG/2 ML Vial ONE (11:05)
[2018-08-08] MEDS: Heparin - SQ 10,000 UNITS/ML Vial SQ SCH (13:43)
[2018-08-08] MEDS ORDERED: Dextrose 50% in Water 50 ML Vial IV.PUSH PRN (15:20)
[2018-08-08] MEDS: MethylPREDNISolone Sod Succinate Inj 40 MG/ML Vial IV.PUSH SCH (16:53)
[2018-08-08] MEDS: Insulin NovoLOG Aspart Correctional Sugar Inj SQ SCH ×2 (18:36→21:06)
--- NOTE | 2018-08-08 18:37 | ECHRPT ---
Indication: CARDIOMYOPATHY CONCLUSIONS Very technically difficult study. The left ventricular systolic function is severely reduced with an estimated ejection fraction in th e range of 25-30%. There was limited left ventricular wall motion assessment due to poor endocardial visualization. Trace mitral valve regurgitation. There is trace tricuspid valve regurgitation. Probable left pleural effusion. BP: / HR: Rhythm: Sinus MEASUREMENTS (Male / Female) Normal Values Technical Quality:Very technically difficult study 2D ECHO LV Diastolic Diameter PLAX 4.2 cm 4.2 - 5.9 / 3.9 - 5.3 cm LV Systolic Diameter PLAX 3.6 cm IVS Diastolic Thickness 1.1 cm 0.6 - 1.0 / 0.6 - 0.9 cm LVPW Diastolic Thickness 1.0 cm 0.6 - 1.0 / 0.6 - 0.9 cm LV Relative Wall Thickness 0.5 RV Internal Dim ED PLAX 2.9 cm LVOT Diameter 1.9 cm LA Systolic Diameter LX 3.5 cm 3.0 - 4.0 / 2.7 - 3.8 cm DOPPLER TR Peak Velocity 175.0 cm/s TR Peak Gradient 12.3 mmHg Right Atrial Pressure 10.0 mmHg Pulmonary Artery Systolic Pressu 22.3 mmHg Right Ventricular Systolic Press 22.3 mmHg FINDINGS LEFT VENTRICLE Normal left ventricular size. Wall thickness is normal. The left ventricular systolic function is severely reduced with an estimated ejection fraction in th e range of 25-30%. There was limited left ventricular wall motion assessment due to poor endocardial visualization. RIGHT VENTRICLE The right ventricle was not well visualized. LEFT ATRIUM The left atrium was not well visualized. RIGHT ATRIUM The right atrium is not well visualized. ATRIAL SEPTUM The interatrial septum not well visualized. AORTA The aortic root and proximal ascending aorta are not well visualized. MITRAL VALVE Mild mitral annular calcification. Trace mitral valve regurgitation. No mitral valve stenosis. AORTIC VALVE The aortic valve is not well visualized. Probable trileaflet No aortic valve regurgitation. No aortic valve stenosis. TRICUSPID VALVE The tricuspid valve is not well visualized. There is trace tricuspid valve regurgitation. The estimated pulmonary arterial pressure is 22 mmHg. PULMONARY VALVE The pulmonary valve is not well visualized. VESSELS The inferior vena cava is normal in size. PERICARDIUM No pericardial effusion. Probable left pleural effusion Eliud Rashid DO (Electronically Signed) Final Date:08 August 2018 18:37
[2018-08-08 21:21] LABS: ABG Base Excess 0.4 mmol/L (-2-2); ABG PCO2 42 mmHg (38-42); ABG PO2 80 mmHg (61-120)
--- NOTE | 2018-08-08 21:28 | MB ---
cc: Minda Meyer MD DATE: 08/08/2018 REASON FOR CONSULTATION: Respiratory insufficiency and bronchitis. HISTORY OF PRESENT ILLNESS: This is a 67-year-old lady who was admitted with complaints of shortness of breath, persistent cough, chest congestion and wheezing for the past several days. The patient does have a prior history of bronchitis and she was bringing up some greenish yellow mucus over the past few days and has had a prior history for an epidural abscess treated more than 2 years ago and has been on doxycycline for a prolonged period of time. She recently, however, noticed that she was having some increased chest congestion, as well as some low grade fevers and thus was admitted through the emergency room. A chest x-ray was done upon admission, which shows no active infiltrates. The patient denies hemoptysis. Denies weight loss. Denies nausea, vomiting or aspiration. PAST MEDICAL HISTORY: Has included history of hypertension, history of diabetes mellitus and hyperlipidemia, previous history of back surgery, following which she developed an epidural abscess treated for a prolonged period of time with antibiotics. She has had previous myocardial infarct and a history for sepsis and hyperlipidemia, history of migraines. PAST SURGICAL HISTORY: Includes total knee replacement surgery, history for and remotely. A tonsillectomy. She has bipolar disorder and has had arthritis, but denies COPD. History of cardiac catheterization and stenting for coronary artery disease. HABITS: The patient smoked 1 pack per day for over 20 years and quit 4 years ago. Alcohol use, none recently. ALLERGIES: PENICILLIN, TETANUS TOXOID, GABAPENTIN. MEDICATION LIST: Included: 1. Escitalopram 20 mg a day. 2. Metformin 1000 mg b.i.d. 3. Metoprolol 25 mg b.i.d. 4. Omeprazole 20 mg a day. 5. Simvastatin 20 mg at bedtime. 6. 1 tablet q.i.d. p.r.n. FAMILY HISTORY: Noncontributory. There is a history of hypertension in the family. REVIEW OF SYSTEMS: The patient is overweight. She has cough, wheezing, chest congestion and postnasal drip. She has epigastric distress and reflux. She has apneic episodes and snoring. She has urinary frequency, joint pains and back pain. Denies any skin lesions. She has depression with anxiety. PHYSICAL EXAMINATION: GENERAL: This obese, elderly, white female, alert, but no acute distress. VITAL SIGNS: Blood pressure 160/70, pulse is 96, respirations 20, temperature 98.2. HEENT: Head is normocephalic. Pupils reactive. Throat was injected. Nasal mucosa edematous. EARS: No inflammation. NECK: Supple, no bruits or thyroid enlargement or lymphadenopathy. CHEST: Decreased excursions, inspiratory and expiratory wheezes scattered throughout both lung velez, prolonged expirations. HEART: Sounds were regular, S1 and S2. No murmur. No S3. ABDOMEN: Soft, protuberant without masses. No organomegaly. Bowel sounds are active. EXTREMITIES: Mild varicosities. No edema. Peripheral pulses are diminished. Reflexes are 1+. No gross motor deficits. The patient moves all her extremities well. NEUROLOGIC: Cranial nerves grossly intact. The patient is responsive, cooperative and with normal affect. IMPRESSION: 1. Asthmatic bronchitis. 2. Probable chronic obstructive pulmonary disease with chronic bronchitis. 3. History of diabetes mellitus type 2. 4. Hypertension and hyperlipidemia. 5. Chronic back pain. 6. History of coronary artery disease and myocardial infarction. PLAN: The patient will be maintained on O2 at 2-3 liters nasal cannula. Nebulized DuoNeb solution added every 6 hours. Continue the present antibiotic coverage as ordered including vancomycin, Flagyl and the patient will submit a sputum for culture and Gram stain. We will also get a bedside pulmonary function study and also get a CT scan of the chest without contrast. The patient will use an incentive spirometer every 3 hours and Symbicort 160/4.5 mcg 2 puffs twice daily was added. The steroids will be tapered down when her wheezing subsides. Thank you, Dr. Alfaro, for this consultation. Minda Meyer MD VJD/yvonne/ , 07:18 PM , 07:33 PM
[2018-08-09] MEDS: Heparin - SQ 10,000 UNITS/ML Vial SQ SCH ×2 (00:47→13:20)
[2018-08-09] MEDS: Aztreonam Inj 2 GM in Sodium Chloride 0.9% Inj 100 ML IV.SIG SCH ×3 (00:47→21:17)
[2018-08-09] MEDS: MethylPREDNISolone Sod Succinate Inj 40 MG/ML Vial IV.PUSH SCH ×3 (00:48→21:19)
[2018-08-09] MEDS: Senna/Docusate Sodium 8.6/50 MG Tablet PO SCH ×3 (00:49→21:18)
[2018-08-09] MEDS: Budesonide-Formoterol 160/4.5 MCG 6 GM Inhaler INH SCH ×3 (01:19→21:21)
[2018-08-09 06:23] LABS: Baso % (Auto) 0.3 % (0.0-2.0); Hematocrit 34.3 % (35.0-46.0); Hemoglobin 10.9 gm/dL (11.6-15.3); Lymph # (Auto) 1.2 th/mm3 (1.0-4.8); Lymph % (Auto) 9.6 % (9.0-44.0); Mean Corpuscular HGB Conc 31.9 % (32.0-36.0); Mean Corpuscular Hemoglobin 27.2 pg (27.0-34.0); Mean Corpuscular Volume 85.1 fL (80.0-100.0); Mean Platelet Volume 9.6 fL (7.0-11.0); Mono # (Auto) 0.4 th/mm3 (0.0-0.9); Mono % (Auto) 3.5 % (0.0-8.0); Neut # (Auto) 10.8 th/mm3 (1.8-7.7); Neut % (Auto) 86.6 % (16.0-70.0); Platelet Count 227 th/mm3 (150-450); Red Blood Count 4.03 mil/mm3 (4.00-5.30); Red Cell Distribution Width 14.1 % (11.6-17.2); White Blood Count 12.4 th/mm3 (4.0-11.0)
[2018-08-09 06:43] LABS: Calcium 8.2 mg/dL (8.5-10.1)
[2018-08-09 06:44] LABS: Carbon Dioxide 28.7 meq/L (21.0-32.0)
[2018-08-09] MEDS: Lisinopril 5 MG Tablet PO SCH (09:15)
[2018-08-09] MEDS: Metoprolol Tartrate 25 MG Tablet PO SCH ×2 (09:15→21:18)
[2018-08-09] MEDS: Pantoprazole Sodium 20 MG DR Tablet PO SCH (09:15)
[2018-08-09] MEDS: buPROPion 150 MG 12 HR Tablet PO SCH ×2 (09:15→21:18)
--- NOTE | 2018-08-09 10:42 | CT ---
EXAM DATE: 08/09/2018 10:24 AM EST AGE/SEX: 67 years / Female INDICATIONS: Short Of Breath CLINICAL DATA: This is the patient's initial encounter. Patient reports that signs and symptoms have been present for 1 day and indicates a pain score of 6/10. MEDICAL/SURGICAL HISTORY: Gastroesophageal reflux disease. Myocardial infarction. Sepsis. Diabet ic, Hypertension section. Tonsillectomy. Thoracic Spine Surgery RADIATION DOSE: 31.51 CTDI (mGy) COMPARISON: [facility], CHEST 1V SINGLE AP, 08/08/2018. . TECHNIQUE: Multiple contiguous axial images were obtained through the chest without contrast. Image s were obtained in suspended respiration using multiple row detector helical technique. Using automa benito exposure control and adjustment of the mA and/or kV according to patient size, radiation dose was kept as low as reasonably achievable to obtain optimal diagnostic quality images. DICOM format imag e data is available electronically for review and comparison. FINDINGS: There are small bilateral pleural effusions and mild dependent/compressive atelectasis of both lower lobes. In the right lower lobe and right middle lobe are a few small, superimposed areas of patchy ai rspace consolidation. No pneumothorax. No evidence of lymphadenopathy. Heart size within normal limits. Surgical changes with a kyphotic def ormity again seen of the thoracic spine. CONCLUSION: 1. Very mild patchy infectious or inflammatory infiltrate of the right base. 2. Small bilateral pleural effusions with mild dependent/compressive atelectasis of both lower lobes . 3. No pneumothorax. Electronically signed by: Shane Dee MD Board Certified Radiologist 08/09/2018 10:40 AM EST
[2018-08-09] MEDS: Insulin NovoLOG Aspart Correctional Sugar Inj SQ SCH ×4 (11:22→21:20)
--- NOTE | 2018-08-09 11:38 | P.PNIM ---
Subjective Interval history: Follow up sepsis, acute resp failure severe cardiomyopathy. Patient seen and examined, sitting up in chair comfortably doing much improved. On 2 LNC. Breathing comfortably. No chest pain. VSS. EF is 25% on ECHO. Cards consulted. Pulmonary has seen patient and updated. VSS. Afebrile. and daughter at bedside and updated as well. Denies any chest pain, sob, ab pain n/v /d. Physical Exam Vital signs: Vital Signs 08/08/18 12:00 08/08/18 13:00 08/08/18 13:46 Temperature 98.0 F Pulse Rate 64 54 L 54 L Respiratory Rate 29 H 18 18 Blood Pressure 128/68 109/60 Pulse Oximetry 99 96 97 08/08/18 13:50 08/08/18 14:00 08/08/18 15:00 Temperature Pulse Rate 52 L 62 Respiratory Rate 18 29 H Blood Pressure 96/57 L 127/72 Pulse Oximetry 98 96 99 08/08/18 15:26 08/08/18 16:00 08/08/18 17:00 Temperature 98.2 F Pulse Rate 60 58 L 60 Respiratory Rate 22 19 22 Blood Pressure 112/65 105/88 Pulse Oximetry 95 98 08/08/18 18:00 08/08/18 19:00 08/08/18 19:50 Temperature 98.7 F Pulse Rate 66 64 66 Respiratory Rate 25 H 29 H 25 H Blood Pressure 111/63 132/85 Pulse Oximetry 95 97 95 08/08/18 20:00 08/08/18 20:06 08/08/18 21:00 Temperature Pulse Rate 64 60 Respiratory Rate 28 H 30 H 25 H Blood Pressure 127/72 120/68 Pulse Oximetry 98 96 08/08/18 21:34 08/08/18 21:50 08/08/18 22:00 Temperature Pulse Rate 56 L Respiratory Rate 21 23 Blood Pressure Pulse Oximetry 98 98 08/08/18 23:00 08/09/18 00:00 08/09/18 01:09 Temperature Pulse Rate 54 L 52 L 56 L Respiratory Rate 21 23 25 H Blood Pressure 115/68 Pulse Oximetry 96 99 97 08/09/18 02:00 08/09/18 03:01 08/09/18 04:00 Temperature Pulse Rate 52 L 52 L 48 L Respiratory Rate 27 H 19 19 Blood Pressure 105/62 103/65 113/64 Pulse Oximetry 98 99 98 08/09/18 05:00 08/09/18 07:01 08/09/18 08:00 Temperature Pulse Rate 50 L 54 L 50 L Respiratory Rate 20 20 Blood Pressure 116/70 140/72 Pulse Oximetry 99 99 08/09/18 08:01 08/09/18 08:23 08/09/18 09:01 Temperature Pulse Rate 50 L 54 L 66 Respiratory Rate 18 16 19 Blood Pressure 122/67 123/67 Pulse Oximetry 99 99 97 Intake & Output 08/08/18 08/09/18 08/09/18 18:59 06:59 18:59 Intake Total 340 / 340 100 / 100 Output Total 1700 / 1700 Balance -1360 / -1360 100 / 100 Intake: IV 100 / 100 100 / 100 Azactam Inj 2 GM In NS Inj 100 100 / 100 100 / 100 ML @ 200 mls/hr IV.SIG Q8H ASHISH Rx#:[id number] Oral 240 / 240 Output: Urine 1700 / 1700 Other: # Incontinent Voids 1 Date of Last Bowel Movement 08/07/18 08/07/18 08/07/18 Narrative: GENERAL: Well-developed, well-nourished patient lying in bed comfortably in nad. SKIN: Warm and dry. No rash. HEAD: Normocephalic. Atraumatic. EYES: Pupils equal and round. No scleral icterus. No injection or drainage. ENT: No nasal bleeding or discharge. Mucous membranes pink and moist. NECK: Supple. Trachea midline. CARDIOVASCULAR: Regular rate and rhythm. RESPIRATORY: No accessory muscle use. Bilateral lower posterior lobes with rhonchi and crackles. Breath sounds equal bilaterally. GASTROINTESTINAL: Abdomen soft, non-tender, nondistended. Round and obese. Normoactive bowel sounds x4. MUSCULOSKELETAL: No obvious deformities. Extremities without clubbing, cyanosis , or edema. NEUROLOGICAL: Awake and alert. No obvious cranial nerve deficits. Motor grossly within normal limits. 5/5 muscle strength in bilateral upper and lower extremities. Normal speech. PSYCHIATRIC: Appropriate mood and affect; insight and judgment normal. Results Labs CBC & Chem 7: 08/09/18 05:50 08/09/18 05:50 Labs: Microbiology 08/06/18 20:00 Blood - Peripheral Aerobic Blood Culture - Preliminary No growth in 3 days 08/06/18 20:00 Blood - Peripheral Anaerobic Blood Culture - Preliminary No growth in 3 days 08/06/18 19:50 Blood - Peripheral Aerobic Blood Culture - Preliminary No growth in 3 days 08/06/18 19:50 Blood - Peripheral Anaerobic Blood Culture - Preliminary No growth in 3 days Imaging Imaging: Impressions Chest CT 08/08/18 00:00 CONCLUSION: 1. Very mild patchy infectious or inflammatory infiltrate of the right base. 2. Small bilateral pleural effusions with mild dependent/compressive atelectasis of both lower lobes. 3. No pneumothorax. Assessment and Plan Plan This is a 67-year-old female patient with a known medical history of hypertension, hyperlipidemia and diabetes who presented to the ED with complaints of abdominal pain, fever, chills, cough and wheezing for 3 days. Sepsis Acute on chronic sinusitis -Met criteria with fever of 102.7, tachycardia, leukocytosis of white blood cell 17,000 and source acute sinusitis. Leukocytosis worsening. -CT of the head was done showing some sinusitis in the left maxillary. -Patient has been started on vancomycin and Azactam. Will continue. -Abdominal CT negative. -Blood cultures have been drawn with no growth, continue to monitor. -Lactic acid normal. UA negative. Chest x-ray initially negative for any acute cardiopulmonary disease. -DC IVF, possibly overloaded. Was given Lasix. CXR showing + fluid balance. Monitor intake and output. ECHO showing severe cardiomyopathy. -Pain control with IV narcotics. -Supportive care. Continue to monitor. Acute respiratory failure secondary to asthmatic bronchitis -Patient previously requiring BIPAP for acute resp distress. -Wheezing was noted throughout. Given 125 mg IV Solumedrol; as well as Lasix a total of 40 mg IV and Ativan 1 mg IV. -Planishing Press Operator consulted, input and recommendations appreciated. PFT as well as chest CT added. Follow. -Added Solumedrol scheduled as well as Duonebs scheduled and as needed. -Continue close monitoring in ICU. -Full code. Severe cardiomyopathy CAD with history of SC and cardiac stents. -ECHO performed showing EF 25-30%. Patient is unaware of any history of this. -Last ECHO reviewed from 2013 showing adequate systolic function. -Consult placed to patient's underground bolting machine operator Dr. Galarza, input and recommendations pending. -Continue to monitor closely. -Continue on beta-miriam and aspirin. Hypertension, chronic -Will continue home medications. Blood pressure stable. Continue to monitor trends. Hyperlipidemia, chronic -Will continue home rosuvastatin. Chronic back pain -E force database has been carried and it does show that patient takes hydrocodone/acetaminophen 10/325 mg p.o. 4 times daily as needed. Will continue this while hospitalized. Morphine also available IV for breakthrough. DVT prophylaxis: SCDs. Heparin. Discussed with patient, , patient's daughter, bedside RN, Mundo Alfaro and Dr. Butcher. Progress Note: Quality VTE Deep Vein Thrombosis/Pulmonary Embolism Present on Admission: No
[2018-08-09] MEDS: VANCOMYCIN IV.SIG SCH ×2 (14:13→14:15)
[2018-08-09] MEDS: SODIUM CHLOR 0.9% IV.SIG SCH ×2 (14:13→14:15)
[2018-08-09] MEDS ORDERED: Zolpidem Tartrate 5 MG Tablet PO ONE (21:05)
[2018-08-10] MEDS: Heparin - SQ 10,000 UNITS/ML Vial SQ SCH ×2 (00:35→13:57)
--- NOTE | 2018-08-10 02:10 | MB ---
cc: Eliud Rashid DO DATE: 08/09/2018 REASON FOR CONSULTATION: Cardiomyopathy. HISTORY OF PRESENT ILLNESS: Yvonne Mcallister is a pleasant 67-year-old female who previously saw my partner, Dr. Galarza, in the office and presented to [facility] due to fevers, chills and cough. She states that she has had multiple fevers at home, although she did not take her temperature, as well as some chills. She has had a cough with green productive phlegm. No one else in the family is sick. She denies any chest pain. She also noticed that she was more short of breath. Because of all of this, she presented to the emergency room. On arrival, she was found to have a temperature of 102.7 and tachycardic. She was admitted with a diagnosis of sepsis and pneumonia. Because she continued to be short of breath and there were pleural effusions, an echocardiogram was done. I read the echocardiogram and overall it was a difficult study due to overall body habitus, but in limited views, the ejection fraction appeared to be 25%-30%. Because of this, I was asked to see the patient. PAST MEDICAL HISTORY: 1. Coronary artery disease with a history of myocardial infarction. 2. Depressive bipolar disorder. 3. Diabetes. 4. GERD. 5. Hypertension. 6. Hyperlipidemia. 7. Migraines. 8. Obesity with a BMI of 46.5. 9. Obstructive sleep apnea, not on CPAP. PAST SURGICAL HISTORY: 1. Cardiac catheterization (03/2014) while at [facility]. She had an inferior STEMI in the middle of back surgery. She underwent cardiac catheterization, which showed normal left main. LAD 20%. OM2 85%, which was stented with a bare-metal stent (3.0 mm), RCA could not be selectively engaged, but has diffuse disease of 50% proximal, 75% mid, 80%-90% PDA. 2. Left total knee arthroplasty (12/24/2005). 3. Rotator cuff repair (07/27/2010). 4. T5-T10 laminectomy with evacuation of epidural abscess. 5. T6-T8 redo laminectomy with evacuation of epidural abscess (03/30/2014). ALLERGIES: 1. PENICILLIN. 2. TETANUS. 3. GABAPENTIN. MEDICATIONS: 1. Crestor 20 mg every night. 2. Hydrocodone/acetaminophen 10/325 mg every 6 hours as needed. 3. Aspirin 81 mg daily. 4. Omeprazole 20 mg daily. 5. Metoprolol tartrate 25 mg b.i.d. 6. Lisinopril 5 mg daily. 7. Lexapro 20 mg daily. 8. Bupropion 150 mg b.i.d. 9. Metformin 1000 mg b.i.d. 10. Ambien 10 mg every night as needed. FAMILY HISTORY: Denies sudden cardiac within the family. SOCIAL HISTORY: The patient denies tobacco, alcohol or drug abuse. REVIEW OF SYSTEMS: Fourteen systems were reviewed including osteopathic. Pertinent positives and negatives above, otherwise negative. PHYSICAL EXAMINATION: VITAL SIGNS: Temperature 98.6, heart rate 64, blood pressure 146/71, respirations 24, pulse oximetry 96% on 2 liters. GENERAL: The patient appears well, in no acute distress, alert, awake and oriented x 3. HEENT: Extraocular muscles intact. Mucous membranes moist. NECK: Supple. No JVD at 45 degrees. No carotid bruits heard bilaterally. Carotid upstroke is brisk in nature. HEART: Regular rate and rhythm. Positive first and second heart sounds with no noted murmurs, gallops or rubs. LUNGS: Decreased breath sounds bilaterally with mild rhonchi. ABDOMEN: Soft, nontender, nondistended. No organomegaly noted. EXTREMITIES: Show no clubbing, cyanosis or edema. Femoral and distal pulses are intact bilaterally. NEUROLOGIC: No focal deficits. SKIN: Warm, dry and intact. OSTEOPATHIC: No kyphoscoliosis, lordosis or paraspinal tender points. LABORATORY DATA: Hemoglobin 10.9, hematocrit 34.3, platelets 227. Potassium 4.0, BUN 21, creatinine 1.2. Troponin 0.03. Electrocardiogram (08/06/2018 at 1930 hours): Sinus tachycardia with first-degree AV block, low QRS voltage, possible anterior myocardial infarction, inferior myocardial infarction. IMPRESSIONS: 1. Pneumonia. 2. Sepsis. 3. New onset cardiomyopathy. 4. Hypertension. 5. Hyperlipidemia. 6. Acute respiratory failure secondary to asthmatic bronchitis. 7. Possible sleep apnea. 8. Obesity with a body mass index of 46.5. 9. Coronary artery disease with a history of myocardial infarction. RECOMMENDATIONS: 1. Ms. Mcallister presented with pneumonia versus bronchitis leading to sepsis. She has been treated with antibiotics per the primary team. 2. She underwent an echocardiogram, which was overall technically difficult, but ejection fraction was definitely decreased and in limited views, the ejection fraction appeared to be 25%-30%. 3. Previous echocardiogram was felt to be relatively normal. 4. I do not believe that this was an acute event as her troponins are negative and EKG shows no significant ST-T wave changes. 5. Ultimately, she has most likely nonischemic cardiomyopathy, possibly due to obesity, but her also states that she has sleep apnea and does not wear CPAP and this is a possible other cause of this. 6. I would continue her on her metoprolol and lisinopril and metoprolol should probably be changed to metoprolol succinate 50 mg at discharge for completeness. 7. After she gets through her acute event, she should follow up with Dr. Galarza as for further considerations of her cardiomyopathy with a consideration of stress testing to rule out ischemia as a possible cause for her cardiomyopathy, although I believe that nonischemic cardiomyopathy is much more likely in her situation, although she does have a history of coronary artery disease. 8. She will continue on aspirin for her previous history of coronary artery disease, coronary artery stenting and myocardial infarction. 9. I spoke to her about weight loss as obesity can be an important cause of cardiomyopathy. 10. I also did speak to her about using CPAP as obstructive sleep apnea untreated can lead to higher risk of myocardial infarctions, atrial fibrillation, strokes and nonischemic cardiomyopathy. Thank you for allowing me to see Yvonne Ary. If there are any questions, please do not hesitate to call. DO RAYA Merino/rw , 01:14 AM , 01:33 AM
[2018-08-10] MEDS: MethylPREDNISolone Sod Succinate Inj 40 MG/ML Vial IV.PUSH SCH (05:50)
[2018-08-10] MEDS: Aztreonam Inj 2 GM in Sodium Chloride 0.9% Inj 100 ML IV.SIG SCH ×3 (05:50→21:51)
[2018-08-10 06:25] LABS: Baso % (Auto) 0.1 % (0.0-2.0); Eos % (Auto) 0.1 % (0.0-4.0); Hemoglobin 11.6 gm/dL (11.6-15.3); Lymph # (Auto) 1.5 th/mm3 (1.0-4.8); Lymph % (Auto) 8.9 % (9.0-44.0); Mean Corpuscular HGB Conc 33.1 % (32.0-36.0); Mean Corpuscular Volume 84.5 fL (80.0-100.0); Mean Platelet Volume 9.5 fL (7.0-11.0); Mono # (Auto) 0.6 th/mm3 (0.0-0.9); Mono % (Auto) 3.5 % (0.0-8.0); Neut # (Auto) 14.6 th/mm3 (1.8-7.7); Neut % (Auto) 87.4 % (16.0-70.0); Platelet Count 285 th/mm3 (150-450); Red Blood Count 4.14 mil/mm3 (4.00-5.30); Red Cell Distribution Width 14.2 % (11.6-17.2); White Blood Count 16.7 th/mm3 (4.0-11.0)
[2018-08-10 06:43] LABS: Calcium 8.7 mg/dL (8.5-10.1)
[2018-08-10] MEDS: Senna/Docusate Sodium 8.6/50 MG Tablet PO SCH ×2 (08:38→20:57)
[2018-08-10] MEDS: Budesonide-Formoterol 160/4.5 MCG 6 GM Inhaler INH SCH ×2 (08:39→20:57)
[2018-08-10] MEDS: buPROPion 150 MG 12 HR Tablet PO SCH ×2 (08:39→20:56)
[2018-08-10] MEDS: Metoprolol Tartrate 25 MG Tablet PO SCH ×2 (08:39→20:56)
[2018-08-10] MEDS: Pantoprazole Sodium 20 MG DR Tablet PO SCH (08:39)
[2018-08-10] MEDS: Lisinopril 5 MG Tablet PO SCH (08:39)
[2018-08-10] MEDS: Insulin NovoLOG Aspart Correctional Sugar Inj SQ SCH ×4 (08:45→21:00)
--- NOTE | 2018-08-10 11:14 | P.PNIM ---
Subjective Interval history: Follow-up sepsis, severe cardiomyopathy and acute respiratory distress. Patient seen and examined, sitting in chair comfortably no apparent distress. On 2 L nasal cannula. No acute events overnight. Doing much improved. Cardiology and pulmonary following. Patient is eating well without any nausea or vomiting. No shortness of breath. No chest pain. Physical Exam Vital signs: Vital Signs 08/09/18 12:49 08/09/18 13:00 08/09/18 13:49 Temperature Pulse Rate 58 L 60 58 L Respiratory Rate 27 H 22 23 Blood Pressure 121/56 L 117/62 Pulse Oximetry 98 98 08/09/18 14:00 08/09/18 14:24 08/09/18 14:25 Temperature Pulse Rate 72 Respiratory Rate 30 H Blood Pressure 121/59 L Pulse Oximetry 75 L 08/09/18 15:00 08/09/18 16:00 08/09/18 17:00 Temperature 98 F Pulse Rate 64 62 60 Respiratory Rate 21 27 H 25 H Blood Pressure 120/71 133/62 116/54 L Pulse Oximetry 95 97 98 08/09/18 18:00 08/09/18 19:00 08/09/18 20:00 Temperature 98.6 F Pulse Rate 84 64 64 Respiratory Rate 46 H 29 H 24 Blood Pressure 146/61 H 146/71 H Pulse Oximetry 91 L 96 97 08/09/18 21:00 08/09/18 23:00 08/09/18 23:28 Temperature Pulse Rate 62 54 L Respiratory Rate 23 24 Blood Pressure 148/76 H 148/73 H Pulse Oximetry 97 96 96 08/10/18 00:00 08/10/18 01:00 08/10/18 02:00 Temperature 98 F Pulse Rate 56 L 54 L 52 L Respiratory Rate 26 H 22 17 Blood Pressure 158/72 H 135/65 119/60 Pulse Oximetry 96 96 95 08/10/18 03:00 08/10/18 04:00 08/10/18 05:00 Temperature 98.2 F Pulse Rate 50 L 56 L 50 L Respiratory Rate 21 32 H 34 H Blood Pressure 119/65 119/64 117/65 Pulse Oximetry 96 96 93 L 08/10/18 06:00 08/10/18 07:00 08/10/18 08:00 Temperature Pulse Rate 54 L 50 L 48 L Respiratory Rate 23 19 21 Blood Pressure 154/77 H 127/65 135/72 Pulse Oximetry 96 96 95 08/10/18 08:11 08/10/18 08:12 08/10/18 08:45 Temperature Pulse Rate 53 L Respiratory Rate 19 33 H Blood Pressure Pulse Oximetry 97 08/10/18 09:08 08/10/18 10:24 Temperature Pulse Rate 70 62 Respiratory Rate 26 H 25 H Blood Pressure 162/77 H 138/65 Pulse Oximetry 97 95 Intake & Output 08/09/18 08/10/18 08/10/18 18:59 06:59 18:59 Intake Total 2093.0 / 2093.0 420 / 420 Output Total 1200 / 1200 800 / 800 Balance 893.0 / 893.0 -380 / -380 Weight 112.1 kg Intake: IV 1133.0 / 1133.0 200 / 200 Azactam Inj 2 GM In NS Inj 100 100 / 100 200 / 200 ML @ 200 mls/hr IV.SIG Q8H [facility] Rx#:[id number] Vancomycin Inj 1,650 MG In NS 516.5 / 516.5 Inj 500 ML @ 250 mls/hr IV.SIG Q24H [facility] Rx#:[id number] Oral 960 / 960 220 / 220 Output: Urine 1200 / 1200 800 / 800 Other: Date of Last Bowel Movement 08/07/18 08/07/18 08/07/18 # Bowel Movements 0 Narrative: GENERAL: Well-developed, obese patient lying in in chair in no apparent distress on 2 L nasal cannula. SKIN: Warm and dry. No rash. HEAD: Normocephalic. Atraumatic. EYES: Pupils equal and round. No scleral icterus. No injection or drainage. ENT: No nasal bleeding or discharge. Mucous membranes pink and moist. NECK: Supple. Trachea midline. CARDIOVASCULAR: Regular rate and rhythm. RESPIRATORY: No accessory muscle use. Diminished. Breath sounds equal bilaterally. GASTROINTESTINAL: Abdomen soft, non-tender, nondistended. Round and obese. Normoactive bowel sounds x4. MUSCULOSKELETAL: No obvious deformities. Extremities without clubbing, cyanosis , or edema. NEUROLOGICAL: Awake and alert. No obvious cranial nerve deficits. Motor grossly within normal limits. 5/5 muscle strength in bilateral upper and lower extremities. Normal speech. PSYCHIATRIC: Appropriate mood and affect; insight and judgment normal. Results Labs CBC & Chem 7: 08/10/18 05:55 08/10/18 05:55 Labs: Microbiology 08/06/18 20:00 Blood - Peripheral Aerobic Blood Culture - Preliminary No growth in 4 days 08/06/18 20:00 Blood - Peripheral Anaerobic Blood Culture - Preliminary No growth in 4 days 08/06/18 19:50 Blood - Peripheral Aerobic Blood Culture - Preliminary No growth in 4 days 08/06/18 19:50 Blood - Peripheral Anaerobic Blood Culture - Preliminary No growth in 4 days 08/09/18 10:56 Sputum - Expectorated Sputum Gram Stain - Final Assessment and Plan Plan This is a 67-year-old female patient with a known medical history of hypertension, hyperlipidemia and diabetes who presented to the ED with complaints of abdominal pain, fever, chills, cough and wheezing for 3 days. Sepsis Acute on chronic sinusitis -Met criteria with fever of 102.7, tachycardia, leukocytosis of white blood cell 17,000 and source acute sinusitis. Leukocytosis worsening. -CT of the head was done showing some sinusitis in the left maxillary. -Patient has been started on vancomycin and Azactam. Will continue. -Abdominal CT negative. -Blood cultures have been drawn with no growth, continue to monitor. -Lactic acid normal. UA negative. Chest x-ray initially negative for any acute cardiopulmonary disease. -DC IVF, possibly overloaded. Continue Lasix. -CXR showing + fluid balance. Monitor intake and output. ECHO showing severe cardiomyopathy. -Pain control with IV narcotics. -Supportive care. Continue to monitor. Acute respiratory failure secondary to asthmatic bronchitis. Improving. -Patient previously requiring BIPAP for acute resp distress. Now on 2 L nasal cannula. Doing well. -Wheezing was noted throughout. Given 125 mg IV Solumedrol; as well as Lasix a total of 40 mg IV and Ativan 1 mg IV. -Insulation And Flooring Assembler consulted, input and recommendations appreciated. PFT as well as chest CT added. Follow. -Solumedrol scheduled IV switch to p.o. As well as Duonebs scheduled and as needed. -Much improved will transfer to floor today. -Full code. Severe cardiomyopathy CAD with history of MS and cardiac stents. -ECHO performed showing EF 25-30%. Patient is unaware of any history of this. -Last ECHO reviewed from 2013 showing adequate systolic function. -Consult placed to patient's test tube maker Dr. Galarza, input and recommendations appreciated. -Continue to monitor closely. -Continue on beta-miriam and aspirin. Continue diuretics. Hypertension, chronic -Will continue home medications. Blood pressure stable. Continue to monitor trends. Hyperlipidemia, chronic -Will continue home rosuvastatin. Chronic back pain -E force database has been carried and it does show that patient takes hydrocodone/acetaminophen 10/325 mg p.o. 4 times daily as needed. Will continue this while hospitalized. Morphine also available IV for breakthrough. DVT prophylaxis: SCDs. Heparin. Discussed with patient, , patient's daughter, bedside RN, Dr. Lopez and Dr. Butcher. Progress Note: Quality VTE Deep Vein Thrombosis/Pulmonary Embolism Present on Admission: No
[2018-08-10] MEDS: SODIUM CHLOR 0.9% IV.SIG SCH (15:12)
[2018-08-10] MEDS: VANCOMYCIN IV.SIG SCH (15:12)
--- NOTE | 2018-08-10 15:17 | P.PNCA ---
Subjective Interval history: Feeling better Up to the chair No fevers No chest pain/SOB Medications and Allergies Active Medications: Active Medications Acetaminophen (Tylenol) 650 mg PO Q4H PRN PRN Reason: Temp > 100.4 Last Admin: 08/08/18 09:00 Dose: 650 mg Hydrocodone Bitart/Acetaminophen ([place] 10/325) 1 tab PO QID PRN PRN Reason: Acute Pain Last Admin: 08/10/18 08:45 Dose: 1 tab Al Hydroxide/Mg Hydroxide (Milk Of Carmen [place]) 30 ml PO Q12H PRN PRN Reason: Mild Constipation Albuterol (Duoneb Neb (Prn)) 1 ampul NEB Q2HR NEB PRN PRN Reason: SHORTNESS OF BREATH/WHEEZING Last Admin: 08/08/18 11:09 Dose: 1 ampul Albuterol (Duoneb Neb (Katie)) 1 ampul NEB Q6HR WHILE AWAKE NEB [facility] Last Admin: 08/10/18 14:39 Dose: 1 ampul Aspirin (Ecotrin) 81 mg PO DAILY [facility] Last Admin: 08/10/18 08:38 Dose: 81 mg Atorvastatin Calcium (Lipitor) 40 mg PO HS [facility] Last Admin: 08/09/18 21:18 Dose: 40 mg Bisacodyl (Dulcolax Supp) 10 mg RECTAL DAILY PRN PRN Reason: SEVERE CONSITIPATION Budesonide/Formoterol Fumarate (Symbicort 160/4.5 Mcg Inh) 2 puff INH BID [facility] Last Admin: 08/10/18 08:39 Dose: 2 puff Bupropion HCl (Wellbutrin Sr) 150 mg PO BID [facility] Last Admin: 08/10/18 08:39 Dose: 150 mg Dextrose (D50w Vial) 50 ml IV.PUSH UNSCH PRN PRN Reason: PER HYPOGLYCEMIA PROTOCOL Escitalopram Oxalate (Lexapro) 20 mg PO DAILY [facility] Last Admin: 08/10/18 08:39 Dose: 20 mg Furosemide (Lasix Inj) 40 mg IV.PUSH DAILY [facility] Last Admin: 08/10/18 08:39 Dose: 40 mg Glucagon (Glucagon Inj) 1 mg OTHER PRN PRN PRN Reason: for Hypoglycemia Protocol Heparin Sodium (Porcine) (Heparin Inj) 5,000 units SQ Q12H [facility] Last Admin: 08/10/18 13:57 Dose: 5,000 units Aztreonam 2 gm/ Sodium (Chloride) 100 mls @ 200 mls/hr IV.SIG Q8H [facility] Last Admin: 08/10/18 13:57 Dose: 200 mls/hr Vancomycin HCl 1,650 mg/ (Sodium Chloride) 516.5 mls @ 250 mls/hr IV.SIG Q24H [facility] Last Infusion: 08/09/18 16:40 Dose: Infused Insulin Aspart (Novolog Insulin Correctional Sugar Inj) 0 unit SQ ACHS [facility]; Protocol Last Admin: 08/10/18 11:58 Dose: 1 unit Lactulose (Lactulose Liq) 30 ml PO DAILY PRN PRN Reason: SEVERE CONSITIPATION Lisinopril (Prinivil) 5 mg PO DAILY [facility] Last Admin: 08/10/18 08:39 Dose: 5 mg Lorazepam (Ativan Inj) 1 mg IV.PUSH Q6H PRN PRN Reason: ANXIETY Last Admin: 08/10/18 09:21 Dose: 1 mg Metoprolol Tartrate (Lopressor) 25 mg PO BID [facility] Last Admin: 08/10/18 08:39 Dose: 25 mg Miscellaneous Information ([facility] Ordered Lab Info) 0 each OTHER ONCE ONE Stop: 08/11/18 13:46 Ondansetron HCl (Zofran Inj) 4 mg IV.PUSH Q6H PRN PRN Reason: NAUSEA OR VOMITING Last Admin: 08/08/18 11:16 Dose: 4 mg Pantoprazole Sodium (Protonix) 20 mg PO DAILY [facility] Last Admin: 08/10/18 08:39 Dose: 20 mg Pharmacy Profile Note (Vancomycin Consult Pharmacy) 1 each OTHER UNSCH PRN PRN Reason: Pharmacy to dose Prednisone (Deltasone) 20 mg PO BID [facility] Senna/Docusate Sodium (Clarita-Colace) 1 tab PO BID [facility] Last Admin: 08/10/18 08:38 Dose: 1 tab Sennosides (Senokot) 17.2 mg PO Q12H PRN PRN Reason: Moderate Constipation Sodium Chloride (Ns Flush) 2 ml IV.FLUSH BID [facility] Last Admin: 08/10/18 11:58 Dose: 2 ml Sodium Chloride (Ns Flush) 2 ml IV.FLUSH PRN PRN PRN Reason: FLUSH AFTER USING IV ACCESS Allergies Allergy/AdvReac Type Severity Reaction Status Date / Time penicillin G Allergy Severe Rash Verified 08/06/18 19:05 tetanus toxoid, adsorbed Allergy Severe Rash Verified 08/06/18 19:05 gabapentin AdvReac Severe Anaphylaxis Verified 08/06/18 20:54 Home Medications Medication Instructions Recorded Confirmed Type aspirin 81 mg PO DAILY 08/06/18 08/06/18 History bupropion HCl 150 mg PO BID 08/06/18 08/06/18 History escitalopram oxalate 20 mg PO DAILY 08/06/18 08/06/18 History hydrocodone-acetaminophen 1 tab PO Q6HR PRN 08/06/18 08/09/18 History lisinopril 5 mg PO DAILY 08/06/18 08/06/18 History metformin 1,000 mg PO BID 08/06/18 08/06/18 History metoprolol tartrate 25 mg PO BID 08/06/18 08/06/18 History omeprazole 20 mg PO DAILY 08/06/18 08/06/18 History rosuvastatin 20 mg PO HS 08/06/18 08/06/18 History zolpidem [Ambien] HS PRN 08/09/18 History Physical Exam Vital signs: Vital Signs 08/09/18 16:00 08/09/18 17:00 08/09/18 18:00 Temperature 98 F Pulse Rate 62 60 84 Respiratory Rate 27 H 25 H 46 H Blood Pressure 133/62 116/54 L Pulse Oximetry 97 98 91 L 08/09/18 19:00 08/09/18 20:00 08/09/18 21:00 Temperature 98.6 F Pulse Rate 64 64 62 Respiratory Rate 29 H 24 23 Blood Pressure 146/61 H 146/71 H 148/76 H Pulse Oximetry 96 97 97 08/09/18 23:00 08/09/18 23:28 08/10/18 00:00 Temperature 98 F Pulse Rate 54 L 56 L Respiratory Rate 24 26 H Blood Pressure 148/73 H 158/72 H Pulse Oximetry 96 96 96 08/10/18 01:00 08/10/18 02:00 08/10/18 03:00 Temperature Pulse Rate 54 L 52 L 50 L Respiratory Rate 22 17 21 Blood Pressure 135/65 119/60 119/65 Pulse Oximetry 96 95 96 08/10/18 04:00 08/10/18 05:00 08/10/18 06:00 Temperature 98.2 F Pulse Rate 56 L 50 L 54 L Respiratory Rate 32 H 34 H 23 Blood Pressure 119/64 117/65 154/77 H Pulse Oximetry 96 93 L 96 08/10/18 07:00 08/10/18 08:00 08/10/18 08:11 Temperature Pulse Rate 50 L 48 L Respiratory Rate 19 21 Blood Pressure 127/65 135/72 Pulse Oximetry 96 95 97 08/10/18 08:12 08/10/18 08:45 08/10/18 09:08 Temperature Pulse Rate 53 L 70 Respiratory Rate 19 33 H 26 H Blood Pressure 162/77 H Pulse Oximetry 97 08/10/18 10:24 08/10/18 11:32 08/10/18 12:00 Temperature Pulse Rate 62 60 Respiratory Rate 25 H 26 H Blood Pressure 138/65 144/71 H 126/60 Pulse Oximetry 95 91 L 96 08/10/18 13:00 08/10/18 14:00 08/10/18 14:42 Temperature Pulse Rate 50 L 54 L 61 Respiratory Rate 37 H 35 H 20 Blood Pressure 125/62 143/68 H Pulse Oximetry 96 96 08/10/18 15:00 Temperature Pulse Rate 64 Respiratory Rate 23 Blood Pressure 132/62 Pulse Oximetry 97 Intake & Output 08/09/18 08/10/18 08/10/18 18:59 06:59 18:59 Intake Total 2093.0 / 2093.0 420 / 420 Output Total 1200 / 1200 800 / 800 Balance 893.0 / 893.0 -380 / -380 Weight 112.1 kg Intake: IV 1133.0 / 1133.0 200 / 200 Azactam Inj 2 GM In NS Inj 100 100 / 100 200 / 200 ML @ 200 mls/hr IV.SIG Q8H [facility] Rx#:[id number] Vancomycin Inj 1,650 MG In NS 516.5 / 516.5 Inj 500 ML @ 250 mls/hr IV.SIG Q24H [facility] Rx#:[id number] Oral 960 / 960 220 / 220 Output: Urine 1200 / 1200 800 / 800 Other: Date of Last Bowel Movement 08/07/18 08/07/18 08/07/18 # Bowel Movements 0 Narrative: GENERAL: NAD, AAOx3 SKIN: Warm and dry. HEAD: Atraumatic. Normocephalic. EYES: Pupils equal and round. No scleral icterus. No injection or drainage. ENT: No nasal bleeding or discharge. Mucous membranes pink and moist. NECK: Trachea midline. No JVD. CARDIOVASCULAR: Regular rate and rhythm. RESPIRATORY: No accessory muscle use. Mild wheezing GASTROINTESTINAL: Abdomen soft, non-tender, nondistended. Hepatic and splenic margins not palpable. MUSCULOSKELETAL: Extremities without clubbing, cyanosis, or edema. No obvious deformities. NEUROLOGICAL: Awake and alert. No obvious cranial nerve deficits. Motor grossly within normal limits. Five out of 5 muscle strength in the arms and legs. Normal speech. PSYCHIATRIC: Appropriate mood and affect; insight and judgment normal. Results 08/10/18 05:55 08/10/18 05:55 CBC 08/09/18 08/10/18 Range/Units 05:50 05:55 WBC 12.4 H 16.7 H (4.0-11.0) th/mm3 RBC 4.03 4.14 (4.00-5.30) mil/mm3 Hgb 10.9 L D 11.6 (11.6-15.3) gm/dL Hct 34.3 L 35.0 (35.0-46.0) % Plt Count 227 285 (150-450) th/mm3 Neut # (Auto) 10.8 H 14.6 H (1.8-7.7) th/mm3 Lymph # (Auto) 1.2 1.5 (1.0-4.8) th/mm3 [place] # (Auto) 0.4 0.6 (0.0-0.9) th/mm3 Eos # (Auto) 0.0 0.0 (0.0-0.4) th/mm3 Baso # (Auto) 0.0 0.0 (0.0-0.2) th/mm3 Comprehensive Metabolic Panel 08/09/18 08/10/18 Range/Units 05:50 05:55 Sodium 138 140 (136-145) meq/L Potassium 4.0 4.0 (3.5-5.1) meq/L Chloride 104 104 (98-107) meq/L Carbon Dioxide 28.7 30.0 (21.0-32.0) meq/L BUN 21 H 30 H (7-18) mg/dL Creatinine 1.20 H 1.20 H (0.50-1.00) mg/dL Calcium 8.2 L 8.7 (8.5-10.1) mg/dL Intake and Output 08/10/18 08/10/18 08/10/18 06:59 14:59 22:59 Intake Total 320 / 320 Output Total 800 / 800 Balance -480 / -480 Intake: IV 100 / 100 Azactam Inj 2 GM In NS Inj 100 100 / 100 ML @ 200 mls/hr IV.SIG Q8H [facility] Rx#:[id number] Oral 220 / 220 Output: Urine 800 / 800 Other: Date of Last Bowel Movement 08/07/18 08/07/18 # Bowel Movements 0 Weight 112.1 kg - Imaging and Cardiology Imaging: Impressions Chest CT 08/08/18 00:00 CONCLUSION: 1. Very mild patchy infectious or inflammatory infiltrate of the right base. 2. Small bilateral pleural effusions with mild dependent/compressive atelectasis of both lower lobes. 3. No pneumothorax. Assessment and Plan - Assessment (1) Cardiomyopathy Code(s): I42.9 - Cardiomyopathy, unspecified Status: Acute (2) CAD (coronary artery disease) Code(s): I25.10 - Atherosclerotic heart disease of resighini coronary artery without angina pectoris Status: Acute (3) Sepsis Code(s): A41.9 - Sepsis, unspecified organism Status: Acute (4) Acute kidney injury Code(s): N17.9 - Acute kidney failure, unspecified Status: Acute - Plan 1. Pneumonia/bronchitis Per primary team 2. Sepsis. 3. New onset cardiomyopathy EF 25-30% Unsure at this time if new, last echo was a number of years ago, troponins negative No signs of ischemic at this time Would have her follow up outpatient for consideration of stress test to rule out ischemia as unable to undergo stress test inpatient with wheezing If NICM, then most likely due to obesity/JEANINE Continue on Metoprolol and Lisinopril Metoprolol should be changed to Metoprolol Succinate on discharge for completeness (50mg daily) 4. Hypertension. 5. Hyperlipidemia. 6. Acute respiratory failure secondary to asthmatic bronchitis. 7. Possible sleep apnea. If diagnosed, should start on CPAP as this can lead to NICM 8. Obesity with a body mass index of 46.5. Needs to consider weight loss 9. Coronary artery disease with a history of myocardial infarction. Con't on ASA No signs of ACS 10. Will see PRN, call with questions Follow up with Dr. Galarza on discharge
[2018-08-10] MEDS: LORazepam 0.5 MG Tablet PO PRN (18:02)
[2018-08-10] MEDS: predniSONE 20 MG Tablet PO SCH (20:56)
[2018-08-11] MEDS: Heparin - SQ 10,000 UNITS/ML Vial SQ SCH ×2 (00:21→13:53)
[2018-08-11] MEDS: LORazepam 0.5 MG Tablet PO PRN (00:21)
[2018-08-11] MEDS: Aztreonam Inj 2 GM in Sodium Chloride 0.9% Inj 100 ML IV.SIG SCH (04:43)
[2018-08-11 05:25] VITALS: TEMP 98.2
[2018-08-11] MEDS: Budesonide-Formoterol 160/4.5 MCG 6 GM Inhaler INH SCH (09:12)
[2018-08-11] MEDS: Senna/Docusate Sodium 8.6/50 MG Tablet PO SCH (09:13)
[2018-08-11] MEDS: predniSONE 20 MG Tablet PO SCH (09:14)
[2018-08-11] MEDS: buPROPion 150 MG 12 HR Tablet PO SCH (09:14)
[2018-08-11] MEDS: Pantoprazole Sodium 20 MG DR Tablet PO SCH (09:14)
[2018-08-11] MEDS: Metoprolol Tartrate 25 MG Tablet PO SCH (09:14)
[2018-08-11] MEDS: Lisinopril 5 MG Tablet PO SCH (09:16)
[2018-08-11] MEDS: Insulin NovoLOG Aspart Correctional Sugar Inj SQ SCH ×2 (09:19→13:53)
--- NOTE | 2018-08-11 10:12 | P.DS ---
DS: Providers Date of admission: 08/07/18 00:47 Primary care physician: Saritha Ramos Consults: 08/08/18 14:55 Consult to Pulmonology Routine Consulting Provider: Shane Santiago V Reason for Consultation: ARF Notified:: Office Spoke with:: JR Date Notified:: 08/08/18 Time Notified:: 15:05 Ordering Provider: JJ 08/09/18 10:29 Consult to Cardiology Routine Consulting Provider: Eliud Rashid Does the patient have a Casualty Claim Adjuster who follows them?: Yes Preferred Fountain Vending Mechanic:: Aldo Galarza Reason for Consultation: severe cardiomyopathy EF 25% Notified:: Service Spoke with:: Yvonne Date Notified:: 08/09/18 Time Notified:: 10:32 Ordering Provider: BRIANNA Brief History from admission: This is a 67-year-old female patient with a known medical history of hypertension, hyperlipidemia and diabetes who presented to the ED with complaints of fever, chills, cough and wheezing for 3 days. She does admit to subjective fevers at home although she states she has not taken her temperature at home as well as nausea, denies any vomiting or diarrhea. Does admit to a cough with green productive phlegm, denies any recent antibiotic use. Denies any sick contacts. Patient denies any history of COPD although she states that she has been wheezing. She states she quit smoking after many years about 4 years ago. She does use a nebulizer at home, states she has been using this more due to her shortness of breath and coughing without resolution of her symptoms. Patient does follow with supervisor farm equipment maintenance, Dr. Galarza. Who manages her CAD. She does have a history of MD and stent placement. It also should be noted that patient has a history of an epidural abscess with MSSA, in 2013 she underwent back surgery for this with placement of rods, at that time was placed on doxycycline and continued for prophylaxis of infection. Recently she has been taken off this doxycycline and she no longer takes this. Denies any abnormal back pain, no point tenderness on exam, she does have chronic back pain and takes Henefer for this. DS: Diagnosis Discharge Diagnosis (1) Cardiomyopathy: Status: Acute (2) CAD (coronary artery disease): Status: Acute (3) Sepsis: Status: Acute (4) Acute kidney injury: Status: Acute DS: Summary This is a 67-year-old female patient with a known medical history of hypertension, hyperlipidemia and diabetes who presented to the ED with complaints of abdominal pain, fever, chills, cough and wheezing for 3 days. Sepsis likely secondary to acute on chronic sinusitis. Met criteria with fever of 102.7, tachycardia, leukocytosis of white blood cell 17,000 and source acute sinusitis. CT of the head was done showing some sinusitis in the left maxillary. Patient has been started on vancomycin and Azactam. Will continue. Abdominal CT negative. Blood cultures have been drawn with no growth. Lactic acid normal. UA negative. Chest x-ray initially negative for any acute cardiopulmonary disease. CXR showing + fluid balance. ECHO showing severe cardiomyopathy. Was started on Lasix. Also has acute respiratory failure secondary to asthmatic bronchitis. Patient previously requiring BIPAP for acute resp distress. Weaned down to RA. Wheezing was noted throughout. Given 125 mg IV Solumedrol; as well as Lasix a total of 40 mg IV and Ativan 1 mg IV. Linter Tender was consulted, PFTs as well as chest CT added. Solumedrol scheduled IV switch to p.o. Duonebs scheduled and as needed. Much improved on day of dc. Was was found to have severe cardiomyopathy and history of CAD with history of MD and cardiac stents. ECHO performed showing EF 25-30%. Patient is unaware of any history of this. Last ECHO reviewed from 2013 showing adequate systolic function. Consult placed to patient's supervisor farm equipment maintenance Dr. Galarza. Continued on beta- miriam and aspirin. Continue diuretics. Has a history of hypertension, continued on home medications. Blood pressure stable. Has a history of hyperlipidemia, continued on home rosuvastatin. Patient has chronic back pain E force database has been queried and it does show that patient takes hydrocodone/ acetaminophen 10/325 mg p.o. 4 times daily as needed. Will continue this while hospitalized. Stable on day of DC. On RA. 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 RX as written, diet as tolerated, activity as tolerated. Patient is stable for DC. All questions answered. Time Spent with Patient Total time spent providing and/or coordinating discharge services: Greater than 30 minutes Quality: VTE Deep Vein Thrombosis/Pulmonary Embolism Present on Admission: No Exam Narrative Exam Narrative: Narrative: GENERAL: Well-developed, obese patient lying in in chair in nad on RA SKIN: Warm and dry. No rash. HEAD: Normocephalic. Atraumatic. EYES: Pupils equal and round. No scleral icterus. No injection or drainage. ENT: No nasal bleeding or discharge. Mucous membranes pink and moist. NECK: Supple. Trachea midline. CARDIOVASCULAR: Regular rate and rhythm. RESPIRATORY: No accessory muscle use. Diminished. Breath sounds equal bilaterally. GASTROINTESTINAL: Abdomen soft, non-tender, nondistended. Round and obese. Normoactive bowel sounds x4. MUSCULOSKELETAL: No obvious deformities. Extremities without clubbing, cyanosis , or edema. NEUROLOGICAL: Awake and alert. No obvious cranial nerve deficits. Motor grossly within normal limits. 5/5 muscle strength in bilateral upper and lower extremities. Normal speech. PSYCHIATRIC: Appropriate mood and affect; insight and judgment normal. Results Labs on day of discharge: Labs from last 24 hours 08/11/18 08/11/18 08/10/18 08:05 04:15 20:52 Creatinine 1.20 H Estimated GFR 45 L POC Glucose 98 198 08/10/18 08/10/18 17:22 11:33 Creatinine Estimated GFR POC Glucose 116 183 Preliminary micro results at discharge 08/09/18 10:56 Sputum Culture - Preliminary Sputum - Expectorated Sputum Heavy growth normal respiratory janelle at 24 hours 08/06/18 20:00 Aerobic Blood Culture - Preliminary Blood - Peripheral No growth in 4 days Anaerobic Blood Culture - Preliminary No growth in 4 days 08/06/18 19:50 Aerobic Blood Culture - Preliminary Blood - Peripheral No growth in 4 days Anaerobic Blood Culture - Preliminary No growth in 4 days Impressions ITS Impressions Head CT 08/06/18 21:32 CONCLUSION: 1. Chronic ethmoid and maxillary sinus disease with suspected acute left maxillary sinusitis. 2. No acute intracranial abnormality. . Abdomen/Pelvis CT 08/07/18 00:00 CONCLUSION: 1. No acute findings in the abdomen and pelvis. 2. Mild hepatic steatosis. 3. 1.8 cm hypodensity in the spleen likely representing a cyst or hemangioma. 4. Small anterior abdominal wall fat-containing hernia. Chest CT 08/08/18 00:00 CONCLUSION: 1. Very mild patchy infectious or inflammatory infiltrate of the right base. 2. Small bilateral pleural effusions with mild dependent/compressive atelectasis of both lower lobes. 3. No pneumothorax. Discharge Plan Discharge Disposition Patient Disposition: 06 Disch W/Home Health Service Discharge Condition Condition: Stable Discharge Order Discharge Orders: Discharge Order (Routine); Ordered 08/11/18 Ordered By: oRmana Narayanan Discharge Details Anticipated Discharge Date: 08/11/18 Discharge Comment: Fluid restriction and no salt diet. Physicians Team ED Provider: Kim Dominguez Primary Care Provider: Saritha Ramos Attending Provider: Roger Salguero Other Providers: Shane Santiago V ; Eliud Rashid Rxs /Orders / Referrals /Forms Prescriptions: New prednisone 20 mg Tablet 20 mg PO BID Qty: 10 RF: 0 budesonide-formoterol [Symbicort] 160-4.5 mcg/actuation Hfa Aerosol Inhaler 2 puff INH BID Qty: 1 RF: 0 metoprolol succinate 50 mg tablet extended release 24 hr 50 mg PO DAILY Qty: 30 RF: 0 furosemide [Lasix] 40 mg tablet 40 mg PO DAILY Qty: 30 RF: 0 doxycycline hyclate 100 mg capsule 100 mg PO BID 10 Days Qty: 20 RF: 0 Continue bupropion HCl 150 mg Tablet Sustained-Release 12 Hr 150 mg PO BID RF: 0 hydrocodone-acetaminophen 10-325 mg Tablet 1 tab PO Q6HR PRN (Reason: Acute Pain) RF: 0 aspirin 81 mg Tablet,Delayed Release (Dr/Ec) 81 mg PO DAILY RF: 0 metformin 1,000 mg Tablet 1,000 mg PO BID RF: 0 omeprazole 20 mg Capsule,Delayed Release(Dr/Ec) 20 mg PO DAILY RF: 0 lisinopril 5 mg Tablet 5 mg PO DAILY RF: 0 escitalopram oxalate 20 mg Tablet 20 mg PO DAILY RF: 0 rosuvastatin 20 mg Tablet 20 mg PO HS RF: 0 zolpidem [Ambien] 10 mg Tablet HS PRN (Reason: Insomnia) RF: 0 Discontinued metoprolol tartrate 25 mg Tablet 25 mg PO BID RF: 0 Ambulatory Orders / Order Sets / DME: XR chest 1V single AP (Routine) Timeframe: 3 Days Location: Determined by Patient Ordered By: Romana Narayanan Referrals: aSritha Ramos [Primary Care Provider] - See Instructions Aldo Galarza MD [Physician] - 08/18/18 12:00 am Shane Santiago MD [Physician] - 09/01/18 12:00 am Discharge Instructions Patient Printed Instructions: Metoprolol (By mouth), Furosemide (By mouth), Doxycycline (By mouth), Prednisone (By mouth), Budesonide/Formoterol (By breathing) Status ED Status: Left Department Discharge Information Discharge Date/Time: 08/11/18 15:07
--- NOTE | 2018-08-11 10:16 | XR ---
EXAM DATE: 08/11/2018 10:03 AM EST AGE/SEX: 67 years / Female INDICATIONS: . Short of breath. CLINICAL DATA: This is the patient's initial encounter. Patient reports that signs and symptoms have been present for 1 day and indicates a pain score of 0/10. MEDICAL/SURGICAL HISTORY: . Gastroesophageal reflux disease. Myocardial infarction. Sepsis. Jyoti betic, Hypertension Tonsillectomy. Thoracic spine surgery. COMPARISON: [facility], CHEST 1V SINGLE AP, 08/08/2018. . FINDINGS: Again seen is a hardware in the thoracic spine, unchanged. The heart is enlarged. There is increasing interstitial edema when compared to to the comparison. There is no pleural effusion or pneumothorax. CONCLUSION: Increasing congestive failure Electronically signed by: Ash Garvin MD Board Certified Radiologist 08/11/2018 10:15 AM EST
--- NOTE | 2018-08-11 10:18 | P.DCO ---
Diagnosis (1) Cardiomyopathy: Status: Acute (2) CAD (coronary artery disease): Status: Acute (3) Sepsis: Status: Acute (4) Acute kidney injury: Status: Acute Physical Therapy Order: Evaluate and treat, Improve ambulation and Strength and gait training Home Health Nursing Order: Medical education, Signs/symptoms of disease process, Medication education-adverse effect and Nursing assessment with vital signs Case Management Consult Case Management Consult-Home Health: Yes I have seen patient Yvonne Mcallister on 08/11/18. My clinical findings support the need for the requested home health care services because: Limited ability to care for self I certify that my clinical findings support that this patient is homebound because: Unsteady gait/balance _ (1) Cardiomyopathy Qualifiers: Cardiomyopathy type: (2) CAD (coronary artery disease) Qualifiers: Coronary Disease-Associated Artery/Lesion type: [place] vs. transplanted heart: Associated angina: (3) Sepsis Qualifiers: Sepsis type:
[2018-08-11 12:25] VITALS: O2SAT 92
[2018-08-11 12:28] VITALS: BP 142/74; PULSE 62; RESP 32
[2018-08-11] MEDS ORDERED: Pharmacy Ordered Lab Info OTHER ONE (13:45)
--- NOTE | 2018-08-13 22:38 | PQ ---
Physician Query Response Document PATIENT: Yvonne Mcallister : 1950 ADMIT DATE: 08/07/2018 12:47 AM DISCH DATE: 08/11/2018 3:07 PM RESPONDING PROVIDER #: JALAINEYO QUERY TEXT: Conflicting Documentation Clarification A single mention or documentation of multiple diagnoses for the same clinical presentation appears in the record. Please clarify the diagnosis/diagnoses: Pneumonia (documented only by Dr. Rashid). Also, if Attending agrees with diagnosis of pneumonia, was the pneumonia present on admission? Please also document if the condition is: -- Confirmed and current -- Confirmed, treated and resolved -- Ruled out -- Other, please specify If you have any additional questions/comments and/or concerns, please do not hesitate to reach out to the CDI/Coding Hotline, Ext. [phone]. The patient's Clinical Indicators include: From ED Report: Differential Diagnosis: Differential diagnosis includes, but is not limited to: SI RS/ sepsis, influenza, pneumonia, viral syndrome, UTI H&P under Assessment and Plan: Sepsis -Meets criteria with fever of 102.7, tachycardia, leukocytosis of white blood cell 17,000 and source is sinusitis -This is likely an upper respiratory infection, they are wheezing on exam as well as congestion and p roductive cough. -This could be a sinusitis, CT of the head was done showing some sinusitis in the left maxillary. At bottom of same section of H&P: Sepsis secondary to acute sinusitis Progress Note 08/10/17 from Attending with diagnosis: Sepsis Acute on chronic sinusitis Dr. Rashid's consult (Cardiology) 08/10/09 documents: History of Present Illness: She was admitted with a diagnosis of sepsis and pneumonia. IMPRESSIONS: 1.Pneumonia. 2.Sepsis. 6.Acute respiratory failure secondary to asthmatic bronchitis. RECOMMENDATIONS: presented with pneumonia versus bronchitis leading to sepsis. She has been treated with antibiotics per the primary team. Progress Note 08/10/18 Dr. Rashid - Plan : 1.Pneumonia/bronchitis Per primary team Dr. Meyer's consult (Pulmonary) 08/08/18 documents: IMPRESSION: 1.Asthmatic bronchitis. 2.Probable chronic obstructive pulmonary disease with chronic bronchitis Chest x-ray findings on 08/09/18: FINDINGS: There are small bilateral pleural effusions and mild dep endent/compressive atelectasis of both lower lobes.In the right lower lobe and right middle lobe are a few small, superimposed areas of patchy airspace consolidation. No pneumothorax. Query created by: Rosalba Zapien on 08/13/2018 5:28 PM RESPONSE TEXT: No Pneumonia Electronically signed by: Medardo Alfaro MD 08/13/2018 10:34 PM
== END 2018-08-11 15:07 | disposition home health service (06) | DRG 871 ==
LOC: PHED 18:34 → PHEDA 08-07 00:47 → PH3 08-07 02:36 → PHICU 08-08 02:48
PROVIDERS: ADMIT Hospitalist; ATTEND Hospitalist
DX: Z95.5 Presence of coronary angioplasty implant and graft; Z79.82 Long term (current) use of aspirin; E66.9 Obesity, unspecified; A41.9 Sepsis, unspecified organism; Z79.84 Long term (current) use of oral hypoglycemic drugs; J44.1 Chronic obstructive pulmonary disease with (acute) exacerbation; E11.9 Type 2 diabetes mellitus without complications; E78.5 Hyperlipidemia, unspecified; Z68.41 Body mass index [BMI] 40.0-44.9, adult; G89.29 Other chronic pain; I42.9 Cardiomyopathy, unspecified; I25.119 Atherosclerotic heart disease of native coronary artery with unspecified angina pectoris; Z23 Encounter for immunization; K21.9 Gastro-esophageal reflux disease without esophagitis; J96.00 Acute respiratory failure, unspecified whether with hypoxia or hypercapnia; G43.909 Migraine, unspecified, not intractable, without status migrainosus; N17.9 Acute kidney failure, unspecified; M54.9 Dorsalgia, unspecified; I25.2 Old myocardial infarction; F41.9 Anxiety disorder, unspecified; I10 Essential (primary) hypertension; J01.00 Acute maxillary sinusitis, unspecified; Z87.891 Personal history of nicotine dependence; G47.33 Obstructive sleep apnea (adult) (pediatric); Z96.652 Presence of left artificial knee joint
CPT/HCPCS: 36600; 70450; 71010; 71020; 71045; 71046; 71250; 74177; 76937; 80048; 80053; 81001; 82565; 82805; 82948; 82962; 83520; 83605; 83690; 83735; 83880; 84100; 84484; 85025; 87040; 87070; 87205; 87275; 87276; 87641; 87804; 90658; 90686; 90761; 90765; 90766; 90767; 90768; 90775; 93005; 93306; 94002; 94618; 94620; 94640; 94656; 94664; 94665; 96361; 96365; 96366; 96367; 96368; 96375; 99285; J1644; J1815; J1940; J2060; J2270; J2405; J2765; J2920; J2930; J3370; J7030; J7040; J7050; J7506; J7512; Q2038; Q9967